=== PATIENT | male | born 1975 | race Hispanic/Latino ===

== ENCOUNTER 2024-09-03 13:18 | Inpatient (IN) | payer SELFPAY ==
[2024-09-03] VITALS (24 sets, daily range): BP systolic 77–141; BP diastolic 49–91; PULSE 81–102; RESP 12–20; TEMP 96–98.6; O2SAT 100
[~2024-09-03] VITALS: Ht 162.6 cm; Wt 44.5 kg
[2024-09-03 13:48] LABS: BASOPHILS # (AUTO) 0.05 K/uL (0.00-0.20); BASOPHILS % (AUTO) 0.4 % (0.0-5.0); EOSINOPHILS # (AUTO) 0.03 K/uL (0.00-0.70); EOSINOPHILS % (AUTO) 0.3 % (0.0-8.0); HEMATOCRIT 44.8 % (42-54); IMMATURE GRANULOCYTE ABSOLUTE 0.17 K/uL (0-1); LYMPHOCYTES # (AUTO) 1.2 K/uL (1.0-4.8); LYMPHOCYTES % (AUTO) 9.7 % (21.0-51.0); MEAN CORPUSCULAR HGB CONC 31.3 g/dL (32.0-36.0); MEAN CORPUSCULAR VOLUME 99.3 fL (79-99); MONOCYTES # (AUTO) 0.6 K/uL (0.1-1.0); MONOCYTES % (AUTO) 5.2 % (3.0-13.0); NEUTROPHILS # (AUTO) 9.9 K/uL (1.8-7.7); PLATELET COUNT (AUTO) 246 K/uL (130-400); RED BLOOD CELL COUNT(AUTO) 4.51 MIL/uL (4.50-6.20); RED CELL DISTRIBUTION WIDTH 13.6 % (11.0-15.5); WHITE BLOOD COUNT (AUTO) 11.9 K/uL (4.8-10.8)
[2024-09-03 13:49] LABS: ABG BASE EXCESS -27.8 mmol/L (-2.0-3.0); ABG HCO3 2.1 mmol/L (21.0-28.0); ABG OXYGEN SATURATION 98.1 % (94.0-98.0); ABG PCO2 < 15 mmHg (35-48); ABG PH 6.971 (7.350-7.450); CARBON MONOXIDE 0.3 % (0.5-1.5); HHb 1.9; PO2, ARTERIAL BG 149.9 mmHg (83.0-108.0); VENT MODE, BG RA (ROOM AIR)
[2024-09-03] MEDS: 0.9%NACL 1000ML 1,000 ML IV ONE (14:04)
[2024-09-03 14:07] LABS: CREATININE 1.6 mg/dL (0.5-1.3); POTASSIUM 4.7 mmol/L (3.5-5.1)
[2024-09-03] MEDS: ondanSETRON 4MG INJ IVP ONE (14:08)
[2024-09-03] MEDS: SODIUM BICARB 50MEQ 50ML VIAL IV ONE ×2 (14:08→22:19)
[2024-09-03] MEDS: INSULIN humuLIN R 100 UNIT/ML 3ML IV ONE (14:09)
[2024-09-03 14:16] LABS: APPEARANCE,URINE CLOUDY (CLEAR); BILIRUBIN,URINE NEGATIVE (NEGATIVE); COLOR,URINE LIGHT-YELLOW (YELLOW); GLUCOSE, URINE (UA) >=1000 mg/dL (NEGATIVE); KETONES,URINE 150 mg/dL (NEGATIVE); LEUKOCYTE ESTERASE ,URINE NEGATIVE Leu/uL (NEGATIVE); NITRATE,URINE NEGATIVE (NEGATIVE); OCCULT BLOOD,URINE SMALL (NEGATIVE); PH,URINE 5.5 (5.0-8.0); PROTEIN,URINE 70 mg/dL (NEGATIVE); UROBILINOGEN,URINE 0.2 mg/dL (0.2-1.0)
[2024-09-03 14:17] LABS: ADD UA MICROSCOPIC YES
[2024-09-03] MEDS ORDERED: PoTASSium chloRIDE 20MEQ/10ML 20 MEQ in 0.9%NACL 1000ML 1,000 ML IV SCH (14:30)
[2024-09-03] MEDS ORDERED: MAGNESIUM 2GM PREMIX 50ML 50 ML IV SCH (14:30)
[2024-09-03] MEDS ORDERED: DEXTROSE 5 %-0.45 % NACL 1,000 ML IV SCH (14:30)
--- NOTE | 2024-09-03 14:35 | ERN ---
General Chief Complaint: Abdominal Pain Stated Complaint: ABDOMINAL PAIN AND VOMITING Time Seen by MD: 13:19 Source: patient History of Present Illness Initial Comments IS A 49-YEAR-OLD MALE COMING IN TO BE EVALUATED FOR NAUSEOUSNESS VOMITING YOUR. PATIENT IS DIABETIC HAS BEEN TAKING MEDICATION FOR SOME TIME. Allergies: Coded Allergies: No Known Allergies (Unverified Allergy, Unknown, 09/03/24) Past Medical History Past Medical History: Diabetes-Type II Past Surgical History: Other ROS Dictation CONSTITUTIONAL: NO CHILLS, NO FEVER, NO WEAKNESS, NO DIAPHORESIS, NO MALAISE. HEAD/FACE: NO SIGNS OF TRAUMA. EENT: NO EYE PAIN, NO BLURRED VISION, NO TEARING, NO DOUBLE VISION, NO EAR PAIN, NO EAR DISCHARGE, NO NOSE PAIN, NO NASAL CONGESTION, NO THROAT PAIN, NO THROAT SWELLING, NO MOUTH PAIN. RESPIRATORY: NO COUGH, NO ORTHOPNEA, NO SOB, NO STRIDOR, NO WHEEZING. CARDIOVASCULAR: NO CHEST PAIN, NO EDEMA, NO PALPITATIONS, NO SYNCOPE. GASTROINTESTINAL/ABDOMINAL: NO ABDOMINAL PAIN, NO CONSTIPATION, NO DIARRHEA, NO NAUSEA, NO VOMITING. GENITOURINARY: NO ABNORMAL DISCHARGE, NO DYSURIA, NO FREQUENT URINATION, NO HEMATURIA. NO COMPLAINTS OF PAIN IN THE GENITALS. MUSCULOSKELETAL: NO BACK PAIN, NO GOUT, NO JOINT PAIN, NO JOINT SWELLING, NO MUSCLE PAIN, NO MUSCLE STIFFNESS, NO NECK PAIN. INTEGUMENTARY: NO CHANGE IN COLOR, NO CHANGE IN HAIR/NAILS, NO DRYNESS, NO LESION, NO LUMPS, NO RASH. NEUROLOGICAL/PSYCH: NO ANXIETY, NOT DEPRESSED, NO EMOTIONAL PROBLEM, NO HEADACHE, NO NUMBNESS, NO PRE-EXISTING DEFICIT, NO HISTORY OF SEIZURES, NO TREMORS, NO WEAKNESS. HEMATOLOGIC/LYMPHATIC: NOT ANEMIC, NO HISTORY OF BLOOD CLOTS, NO APPARENT BLEEDING, NO BRUISING, GLANDS NOT SWOLLEN. ALL SYSTEMS NEGATIVE, EXCEPT NOTED. Physical Exam Physical Exam Dictation VITAL SIGNS: REVIEWED. GENERAL APPEARANCE: ALERT, ORIENTED X3, ACUTE DISTRESS, . HEAD AND FACE: NON-TRAUMATIC. EYES: PERRL, PINK CONJUNCTIVAS, EYELID NO TRAUMA, ANTERIOR CHAMBER CLEAR. EARS: PINNAS INTACT AND NO SIGNS OF TRAUMA OR ERYTHEMA. EAR CANALS CLEAR AND NO DISCHARGE. TMS NO ERYTHEMA. NOSE: NO DISCHARGE, NO BLEEDING. OROPHARYNX: MOUTH NORMAL, TEETH NO CARIES, TONGUE PINK. PHARYNX CLEAR, NO ERYTHEMA. TONSILS NO EXUDATES, NO ABSCESSES NOTED. MUCOUS MEMBRANE MOIST. NECK: SUPPLE, NON-TENDER, NO THYROMEGALY, NO MASSES, NO JVD, NO BRUITS. BREAST: DEFERRED. CHEST: NO TENDERNESS, NO CREPITUS, NO PARADOXICAL MOVEMENT, NO RETRACTIONS. LUNGS: CLEAR, WELL-VENTILATED, SYMMETRIC, NO RALES, NO WHEEZING, NO RHONCHI, NO STRIDOR, GOOD BREATH SOUNDS BILATERALLY. HEART: REGULAR RATE, REGULAR RHYTHM, NO MURMUR, NO GALLOPS. VASCULAR: NO PERIPHERAL EDEMA. ABDOMEN: SOFT, POSITIVE BOWEL SOUNDS, NONDISTENDED, NO GUARDING, NONTENDER, NO REBOUND, NO MASSES NO HEPATOMEGALY, NO SPLENOMEGALY, NO ROJO'S SIGN, NO HERNIAS. RECTAL: DEFERRED. GENITAL: DEFERRED. NEUROLOGICAL: NORMAL SPEECH, GROSS MOTOR FUNCTION INTACT, GROSS SENSORY F UNCTION INTACT. MUSCULOSKELETAL: NECK NONTENDER, FULL RANGE OF MOTION, BACK NONTENDER, FULL RANGE OF MOTION. EXTREMITIES: NONTENDER, FULL RANGE OF MOTION. SKIN: COLOR PINK, DRY, NO TURGOR, NO RASH, NO LACERATIONS, NO ABRASIONS, NO CONTUSIONS. LYMPHATICS: DEFERRED. Results Laboratory and Microbiology Lab and Micro Result Laboratory Tests Test 09/03/24 13:20 09/03/24 13:36 09/03/24 13:48 09/03/24 14:00 Sodium Level 131 mmol/L (136-145) L Potassium Level 4.7 mmol/L (3.5-5.1) Chloride Level 96 mmol/L (101-111) L Carbon Dioxide Level 7 mmol/L (21-32) *L Blood Urea Nitrogen 27 mg/dL (7-18) H Creatinine 1.6 mg/dL (0.5-1.3) H Glomerular Filtration Rate Calc 52 mL/min (>90) Random Glucose 538 mg/dL (70-105) *H Whole Blood Ketones Quantitative 7.5 mmol/L (0.0-0.6) H Lactic Acid Level 5.7 mmol/L (0.8-2.5) H Total Calcium 7.9 mg/dL (8.5-10.1) L Total Creatine Kinase 88 U/L (21-232) White Blood Count 11.9 K/uL (4.8-10.8) H Red Blood Count 4.51 MIL/uL (4.50-6.20) Hemoglobin 14.0 g/dL (14.0-18.0) Hematocrit 44.8 % (42-54) Mean Corpuscular Volume 99.3 fL (79-99) H Mean Corpuscular Hemoglobin 31.0 pg (27.0-33.0) Mean Corpuscular Hemoglobin Concent 31.3 g/dL (32.0-36.0) L Red Cell Distribution Width 13.6 % (11.0-15.5) Platelet Count 246 K/uL (130-400) Mean Platelet Volume 11.1 fL (7.5-10.5) H Immature Granulocyte % (Auto) 1.4 % (0-1) H Neutrophils (%) (Auto) 83.0 % (40.0-77.0) H Lymphocytes (%) (Auto) 9.7 % (21.0-51.0) L Monocytes (%) (Auto) 5.2 % (3.0-13.0) Eosinophils (%) (Auto) 0.3 % (0.0-8.0) Basophils (%) (Auto) 0.4 % (0.0-5.0) Neutrophils # (Auto) 9.9 K/uL (1.8-7.7) H Lymphocytes # (Auto) 1.2 K/uL (1.0-4.8) Monocytes # (Auto) 0.6 K/uL (0.1-1.0) Eosinophils # (Auto) 0.03 K/uL (0.00-0.70) Basophils # (Auto) 0.05 K/uL (0.00-0.20) Absolute Immature Granulocyte (auto 0.17 K/uL (0-1) Nucleated Red Blood Cells 0.0 % (0.0-0.19) Troponin I High Sensitivity < 4 ng/L (4-75) L Blood Gas Specimen Type Arterial Arterial Blood pH 6.971 (7.350-7.450) Arterial Blood Partial Pressure CO2 < 15 mmHg (35-48) *L Arterial Blood Partial Pressure O2 149.9 mmHg (83.0-108.0) H Arterial Blood HCO3 2.1 mmol/L (21.0-28.0) L Arterial Blood Oxygen Saturation 98.1 % (94.0-98.0) H Arterial Blood Base Excess -27.8 mmol/L (-2.0-3.0) L Hemoglobin (Blood Gas) 13.6 g/dL (13.5-17.5) Sodium (Blood Gas) 133 MMOL/L (136-145) L Bedside Potassium (Blood Gas) 3.9 MMOL/L (3.4-4.5) Bedside Chloride (Blood Gas) 105 MMOL/L (98-107) Bedside Glucose (Blood Gas) 491 MG/DL (65-95) *H Bedside Ionized Calcium (Blood Gas) 1.23 MMOL/L (1.15-1.33) Bedside Lactic Acid (Blood Gas) 2.48 MMOL/L (0.36-0.75) H Blood Gas Temperature 37.0 CELSIUS (35.5-37.0) Blood Gas Vent Mode RA (ROOM AIR) FiO2 21.0 % Blood Gas Specimen Comment RRSTACY Urine Color LIGHT-YELLOW (YELLOW) Urine Appearance CLOUDY (CLEAR) H Urine pH 5.5 (5.0-8.0) Urine Specific [place] 1.021 (1.001-1.031) Urine Protein 70 mg/dL (NEGATIVE) H Urine Glucose (UA) >=1000 mg/dL (NEGATIVE) H Urine Ketones 150 mg/dL (NEGATIVE) H Urine Occult Blood SMALL (NEGATIVE) H Urine Nitrate NEGATIVE (NEGATIVE) Urine Bilirubin NEGATIVE mg/dL (NEGATIVE) Urine Urobilinogen 0.2 mg/dL (0.2-1.0) Urine Leukocyte Esterase NEGATIVE Hortencia/uL Labs Reviewed?: Yes EKG/XRAY/US/CT/MRI EKG Comment 09/03/2024 TIME 1:38 P.M. VENTRICULAR RATE 111 SIN[address] TACHYCARDIA [place] [address] WAVE ELEVATION OR DEPRESSION MDM MDM: DIFFERENTIAL DIAGNOSIS: DKA, ELEVATED GLUCOSE, DEHYDRATION, RATIONALE: TESTS CONSIDERED AND ORDERED SECONDARY TO SHARED DECISION MAKING INCLUDE: LABS, ECG AND RADIOLOGY PREVIOUS OUTSIDE RECORDS REVIEWED: OLD ER VISITS. RISK OF COMPLICATION AND/OR MORBIDITY OR MORTALITY OF PATIENT MANAGEMENT: NONE MEDICATIONS-PER MEDICATION RECONCILIATION NEED FOR HOSPITALIZATION: PATIENT DOES MEET CRITERIA FOR HOSPITALIZATION. NEED FOR EMERGENCY MAJOR/MINOR SURGERY: NO THERE ARE NO SOCIAL CONCERNS WITH THIS PATIENT. PRESCRIPTION DRUG MANAGEMENT PRESCRIPTIONS WILL INCLUDE SYMPTOMATIC CARE PATIENT'S PRIOR EXTERNAL MEDICAL RECORDS FROM OTHER ER VISITS WERE REVIEWED BY ME INDICATED. PRIOR TESTING AND RESULTS FROM PREVIOUS VISITS WERE REVIEWED. PRIOR TESTS WERE TAKEN INTO ACCOUNT WITH MEDICAL DECISION MAKING AND RESOURCE UTILIZATION, INDEPENDENT HISTORIAN/HISTORIANS WERE USED TO OBTAIN COMPLETE MEDICAL HISTORY. I INDEPENDENTLY INTERPRETED THE TEST THAT WERE PERFORMED, RESULTS WERE REVIEWED BY ME AND CONSIDERED FINDINGS ON RADIOLOGY IF ORDERED. MEDICAL MANAGEMENT AND EXAMINATION INTERPRETATION DISCUSSIONS WERE HAD BY ME WITH OTHER QUALIFIED HEALTHCARE PROFESSIONALS INDICATED FOR THE PATIENT'S CARE. PATIENT IS A 49-YEAR-OLD IN TO BE EVALUATED FOR NEAR SYNCOPAL EPISODE. PATIENT DOES HAS A HISTORY OF DIABETES AND HAS NOT BEEN TAKING HIS MEDICATION PRESCRIBED. PATIENT WILL BE ADMITTED UNDER THE CARE OF HOSPITALIST GROUP FOR ONGOING MANAGEMENT OF DKA. ED Course Orders Procedure Category Date Status Time Cbc With Differential LAB 09/03/24 In Process 13:20 Blood Cult THOM 09/03/24 In Process 13:20 Urinalysis Profile LAB 09/03/24 In Process 13:20 Culture Urine THOM 09/03/24 In Process 13:20 Creatine Kinase, Total LAB 09/03/24 Complete 13:20 Troponin I High LAB 09/03/24 Complete Sensitivity 13:20 Lactic Acid LAB 09/03/24 Complete 13:20 Basic Metabolic Panel LAB 09/03/24 Complete 13:20 Ketone Blood LAB 09/03/24 Complete Quantitative 13:20 Arterial Blood Gas + RT 09/03/24 Transmitted 13:20 0.9%Nacl 1000ml (Ns PHA 09/03/24 Complete 1000ml) 13:30 12 Lead Ekg Tracing- EKG 09/03/24 Logged Technical 13:20 Arterial Blood Gas LAB 09/03/24 Complete Arterial + 13:48 Ondansetron 4mg Inj PHA 09/03/24 Complete (Zofran 4mg Inj) 14:00 Sodium Bicarb 50meq PHA 09/03/24 Complete 50ml Vial (Sodium Bi 14:00 Insulin Regular, PHA 09/03/24 Complete Human 3ml (Humulin R 14:00 Dka Prtcl:Restrict To CPOE 09/03/24 Transmitted Icu/Ccu 14:26 Dka Protcl:Dc All CPOE 09/03/24 Transmitted Meds/Feeding 14:26 Dka Protocol: Bmp Q4h CPOE 09/03/24 Transmitted Until 14:26 Basic Metabolic Panel LAB 09/03/24 Logged 18:00 Basic Metabolic Panel LAB 09/03/24 Logged 22:00 Basic Metabolic Panel LAB 09/04/24 Verified 02:00 Basic Metabolic Panel LAB 09/04/24 Verified 06:00 Basic Metabolic Panel LAB 09/04/24 Verified 10:00 Basic Metabolic Panel LAB 09/04/24 Verified 14:00 Basic Metabolic Panel LAB 09/04/24 Verified 18:00 Basic Metabolic Panel LAB 09/04/24 Verified 22:00 0.9%Nacl 1000ml (Ns PHA 09/03/24 In Process 1000ml) 14:30 D5w-1/2 Ns/20meq Kcl PHA 09/03/24 In Process (D5w-1/2 Ns/20meq K 14:30 Potassium Chloride PHA 09/03/24 In Process 20meq/10ml (Kcl 20meq 14:30 Magnesium 2gm Premix PHA 09/03/24 In Process 50ml (Magnesium 2gm 14:30 Insulin Regular, PHA 09/03/24 In Process Human 3ml (Humulin R 14:30 Dka Protocol: Bs, Vs, CPOE 09/03/24 Transmitted Neuro 14:26 Dextrose 5 %-0.45 % PHA 09/03/24 In Process Nacl (D5 1/2ns) 14:30 0.9%Nacl 1000ml (Ns PHA 09/03/24 Complete 1000ml) 14:31 Current Medications Medications (Trade) Dose Ordered Sig/Moris Route PRN Reason Start Time Stop Time Status Last Admin Dose Admin Dextrose/Sodium Chloride 1,000 ml @ 0 mls/hr AD IV 09/03/24 14:30 10/03/24 14:29 Insulin Human Regular (humuLIN R 100 UNIT/ML 3ML) 5 unit ONCE ONCE IV 09/03/24 14:00 09/03/24 14:02 DC 09/03/24 14:09 Insulin Human Regular 100 unit/ Sodium Chloride 101 ml @ 0 mls/hr PROTOCOL IV 09/03/24 14:30 10/03/24 14:29 Magnesium Sulfate 50 ml @ 0 mls/hr PROTOCOL IV 09/03/24 14:30 10/03/24 14:29 Ondansetron HCl (zoFRAN 4MG INJ) 4 mg ONCE ONCE IVP 09/03/24 14:00 09/03/24 14:02 DC 09/03/24 14:08 Potassium Chloride 20 meq/ Sodium Chloride 1,010 ml @ 0 mls/hr PROTOCOL IV 09/03/24 14:30 10/03/24 14:29 Potassium Chloride/Dextrose/ Sod Cl 1,000 ml @ 0 mls/hr AD IV 09/03/24 14:30 10/03/24 14:29 Sodium Bicarbonate (Sodium Bicarb 50meq 50ml Vial) 50 meq ONCE ONCE IV 09/03/24 14:00 09/03/24 14:02 DC 09/03/24 14:08 Sodium Chloride 1,000 ml @ 0 mls/hr ONCE ONCE IV 09/03/24 13:30 09/03/24 13:52 DC 09/03/24 14:04 Sodium Chloride 1,000 ml @ 0 mls/hr Q0M STAT IV 09/03/24 14:31 09/03/24 14:38 DC 09/03/24 14:41 Sodium Chloride 1,000 ml @ 200 mls/hr PROTOCOL IV 09/03/24 14:30 10/03/24 14:29 Vital Signs Date Time Temp Pulse Resp B/P (MAP) Pulse Ox O2 Delivery O2 Flow Rate FiO2 09/03/24 14:18 98.1 104 27 141/94 99 Room Air* 0 21 09/03/24 13:42 109 29 155/87 100 Room Air* 0 21 09/03/24 13:19 98.1 110 30 153/96 99 Critical Care Note Comments CRITICAL CARE PROCEDURE NOTE AUTHORIZED AND PERFORMED BY: TOTAL CRITICAL CARE TIME: APPROXIMATELY 36 MINUTES DUE TO A HIGH PROBABILITY OF CLINICALLY SIGNIFICANT, LIFE THREATENING DETERIORATION, THE PATIENT REQUIRED MY HIGHEST LEVEL OF PREPAREDNESS TO INTERVENE EMERGENTLY AND I PERSONALLY SPENT THIS CRITICAL CARE TIME DIRECTLY AND PERSONALLY MANAGING THE PATIENT. THIS CRITICAL CARE TIME INCLUDED OBTAINING A H ISTORY; EXAMINING THE PATIENT; PULSE OXIMETRY; ORDERING AND REVIEW OF STUDIES; ARRANGING URGENT TREATMENT WITH DEVELOPMENT OF A MANAGEMENT PLAN; EVALUATION OF PATIENT'S RESPONSE TO TREATMENT; FREQUENT REASSESSMENT; AND, DISCUSSIONS WITH OTHER PROVIDERS. THIS CRITICAL CARE TIME WAS PERFORMED TO ASSESS AND MANAGE THE HIGH PROBABILITY OF IMMINENT, LIFE-THREATENING DETERIORATION THAT COULD RESULT IN MULTI-ORGAN FAILURE. IT WAS EXCLUSIVE OF SEPARATELY BILLABLE PROCEDURES AND TREATING OTHER PATIENTS AND TEACHING TIME. PLEASE SEE MDM SECTION AND THE REST OF THE NOTE FOR FURTHER INFORMATION ON PATIENT ASSESSMENT AND TREATMENT. DX & DISP Disposition: Inpatient Decision to Admit Time: 14:45 Departure Impression: Primary Impression: DKA (diabetic ketoacidosis) Additional Impression: RACHEL (acute kidney injury) Condition: Stable Referrals: SELF,REFERRAL (PCP) GWEN HUDSON MD September 03, 2024 14:35
[2024-09-03] MEDS: 0.9%NACL 1000ML 1,000 ML IV STA (14:41)
[2024-09-03 14:51] LABS: BACTERIA,URINE RARE /HPF (None Seen); MUCUS,URINE RARE LPF (None Seen); RBC,URINE 0-1 /HPF (0-1); SQUAMOUS EPITHELIAL CELL,UR RARE /HPF (0-2)
[2024-09-03] MEDS: 0.9%NACL 1000ML 1,000 ML IV SCH (15:05)
[2024-09-03] MEDS: INSULIN REGULAR, HUMAN 3ML 100 UNIT in 0.9%NACL 100ML 100 ML IV SCH (15:11)
--- NOTE | 2024-09-03 16:20 | NUR ---
PT DOES NOT HAVE HOME MEDS WITH HIM. PT DOES NOT RECALL CONCENTRATION OF HOME MEDS. PT DOES RECALL THAT HE TAKES METFORMIN. UNABLE TO RECALL FREQUENCY AT THIS TIME
[2024-09-03] MEDS ORDERED: ondanSETRON 4MG INJ IV PRN (16:30)
[2024-09-03] MEDS ORDERED: guaiFENesin-DM 200/20MG 10ML PO PRN (16:30)
[2024-09-03] MEDS ORDERED: GLUCAGON 1MG KIT 1 MG ML IM PRN (16:30)
[2024-09-03] MEDS ORDERED: ZOLPidem TARTrate 5 MG TAB PO PRN (16:30)
[2024-09-03] MEDS ORDERED: ketOROlac 15MG/ML VIAL (15MG/ML) IV PRN (16:30)
[2024-09-03] MEDS ORDERED: 0.9%NACL 1000ML 1,000 ML IV SCH (16:30)
[2024-09-03] MEDS ORDERED: LACTULOSE 20 GM/30 ML UDCUP PO PRN (16:30)
[2024-09-03] MEDS ORDERED: MAG/ALUM/SIMETH 30 ML UDCUP PO PRN (16:30)
[2024-09-03] MEDS ORDERED: acetaMINOPHEN 325 MG TAB PO PRN ×3 (16:30)
[2024-09-03] MEDS ORDERED: morPHINE 2 MG SYG IVP PRN (16:30)
[2024-09-03] MEDS: INSULIN humuLIN R 100 UNIT/ML 3ML SQ SCH (16:30)
[2024-09-03] MEDS ORDERED: NITROGLYCERIN 0.4 MG SL TAB SL PRN (16:30)
[2024-09-03] MEDS ORDERED: oxyCODONE/aceTAMIN 5/325MG TAB PO PRN (16:30)
[2024-09-03] MEDS ORDERED: DiphenhydrAMINE HCL 50 MG/ML VIAL IV PRN (16:30)
[2024-09-03] MEDS ORDERED: hydrALAZine 20MG/ML VIAL IV PRN (16:30)
[2024-09-03] MEDS ORDERED: FAMOTIDINE 20MG VIAL IV PRN (16:30)
[2024-09-03] MEDS ORDERED: DEXTROSE 50%-WATER 50 ML DISP.SYRIN IV PRN (16:30)
--- NOTE | 2024-09-03 16:32 | HMCIMG ---
Exam Type: CHEST 1VW Clinical Information: congestion Comparison: None Findings: The lungs are clear of infiltrates. The heart is normal in size. The bony and soft tissue structures of the chest are unremarkable. Impression: Clear lungs.
--- NOTE | 2024-09-03 16:43 | HP ---
[facility]ORY [facility] PHYS[facility] Date of Service: September 03, 2024 Time of Service: 16:33 PCP:none Admitting: Dr Mast, Allergies: No Allergy Information Available, No Known Drug Allergies HISTORY OF PRESENT ILLNESS: [Patient is 49 years old male with a past medical history of diabetes, noncompliance, who came to emergency department with a complaint of nausea, vomiting and abdominal pain. Patient stated that he has been having abdominal pain for the past few days. Nausea and vomiting started a day after abdominal pain. Today patient decided to come to ER due to severe abdominal pain, that no pain medications were able to release the pain. Most recent vital signs temperature 97.9� pulse 110 respiration 26 blood pressure 126/78. Patient is on room air satting 99%. WBC 11.9 hemoglobin 14 hematocrit 44.8 platelets 246. UA negative for leukocytosis or nitrates. Sodium 131 potassium 4.7 CO2 seven BUN 27 creatinine 1.6 GFR 52 blood glucose 466. Random glucose 538 lactic acid 5.7 WBC ketones 7.5 total calcium 7.9 troponin negative x1 CK 88. Patient will be admitted under hospitalist care and we will send patient to ICU for DKA. Patient was started on insulin drip in the meantime. Chest x-ray and CT abdomen/pelvis is pending at this moment. We will consult meeting planner for re-evaluation of diabetes. Patient agrees with the further stated plan.] REVIEW OF SYSTEMS CONSTITUTIONAL: Denies fevers, chills, or night sweats. No unintentional weight loss reported. NEUROLOGICAL: Denies headache, amaurosis fugax, motor weakness, sensory deficit, vertigo/spinning sensation, gait abnormalities, or tremors. ENT: No hearing loss, otalgia, otorrhea, rhinitis, rhinorrhea, hoarseness, or sore throat. CARDIOVASCULAR: Denies any exertional angina, dyspnea on exertion, orthopnea, paroxysmal nocturnal dyspnea, palpitations, life-threatening arrhythmias, claudication. PULMONARY: Denies any shortness of breath, cough, phlegm/sputum, hemoptysis, pleuritic chest pain. SLEEP: Denies morning headaches, daytime somnolence or napping. Denies difficulty falling asleep, staying asleep, waking from sleep. Denies knowledge of snoring. GASTROINTESTINAL: Denies any type of dysphagia to either liquids or solids. De nies pyrosis, early satiety, diarrhea, constipation, or changes in stool consistency or caliber. Denies coffee-ground emesis, hematemesis, hematochezia, or melanotic stools. Abdominal pain, nausea, vomiting GENITOURINARY: Denies frequency, urgency, nocturia, hematuria or incontinence (Storage/Irritative symptoms.) Low urinary stream, straining to void, urinary intermittency or hesitancy, splitting of the voiding stream, terminal dribbling. ENDOCRINOLOGIC: Denies polyuria, polydipsia, polyphagia or heat/cold intolerances. HEMATOLOGIC: Denies thrombophilia/previous clots, or coagulopathy/bleeding disorders. ONCOLOGIC: Denies personal history of malignancy. DERMATOLOGIC: Denies rashes or pruritus. PSYCHIATRIC: Denies any suicidal or homicidal ideation. Denies hallucinations. PAST MEDICAL HISTORY: [ Diabetes] PAST SURGICAL HISTORY: [ Denies any] PAST SOCIAL HISTORY: [ Patient denies smoking. Patient stated he drinks occasionally. Patient denies any drug illicit ] FAMILY HISTORY: [ Patient lives at home with the family. Patient independent. ] Coded Allergies: No Known Allergies (Unverified Allergy, Unknown, 09/03/24) PHYSICAL EXAM GENERAL APPEARANCE: The patient is awake, alert, and oriented, in no acute cardiopulmonary distress. NEUROLOGICAL: Cranial nerves II-XII grossly intact. Motor is 5/5 in bilateral upper and lower extremities proximal to distal. No sensory deficits. HEENT: Face is symmetric. Pupils are equal and reactive. Extraocular movements are intact. NECK: Supple. No JVD. No thyromegaly. No submental, submandibular, pre- /postauricular, occipital or supraclavicular lymphadenopathy. CHEST: Normal chest expansion. No Telemetry. LUNGS: Absence of any rales, rhonchi or any wheezing. CARDIOVASCULAR: Regular. S1 and S2 normal. No appreciable rubs, murmurs or gallops. ABDOMEN: Soft, and nondistended. There is no rebound, voluntary guarding, or rigidity. Tender to touch : Deferred. No Boswell. EXTREMITIES: Non-edematous and not cyanotic. No clubbing. Good capillary refill. SKIN: No skin breakdown. Vital Sign (Last 24 Hours) 09/03/24 16:07 Temp 97.9 Pulse 110 Resp 26 B/P (MAP) 126/78 Pulse Ox 99 O2 Delivery Room Air* O2 Flow Rate 0 FiO2 21 LABS: Laboratory: Test 09/03/24 16:05 09/03/24 14:55 09/03/24 14:00 09/03/24 13:48 Range/Units Whole Blood Glucose 422 *H 70-110 MG/DL Bedside Glucose Comment Protocol Initiated Urine Color LIGHT-YELLOW YELLOW Urine Appearance CLOUDY H CLEAR Urine pH 5.5 5.0-8.0 Urine Specific [place] 1.021 1.001-1.031 Urine Protein 70 H NEGATIVE mg/dL Urine Glucose (UA) >=1000 H NEGATIVE mg/dL Urine Ketones 150 H NEGATIVE mg/dL Urine Occult Blood SMALL H NEGATIVE Urine Nitrate NEGATIVE NEGATIVE Urine Bilirubin NEGATIVE NEGATIVE mg/dL Urine Urobilinogen 0.2 0.2-1.0 mg/dL Urine Leukocyte Esterase NEGATIVE NEGATIVE [place]/uL Urine RBC 0-1 0-1 /HPF Urine WBC 2-5 H 0-1 /HPF Urine Squamous Epithelial Cells RARE 0-2 /HPF Urine Bacteria RARE None Seen /HPF Blood Gas Specimen Type Arterial Arterial Blood pH 6.971 *L 7.350-7.450 Arterial Blood Partial Pressure CO2 < 15 *L 35-48 mmHg Arterial Blood Partial Pressure O2 149.9 H 83.0-108.0 mmHg Arterial Blood HCO3 2.1 L 21.0-28.0 mmol/L Arterial Blood Oxygen Saturation 98.1 H 94.0-98.0 % Arterial Blood Base Excess -27.8 L -2.0-3.0 mmol/L Hemoglobin (Blood Gas) 13.6 13.5-17.5 g/dL Sodium (Blood Gas) 133 L 136-145 MMOL/L Bedside Potassium (Blood Gas) 3.9 3.4-4.5 MMOL/L Bedside Chloride (Blood Gas) 105 98-107 MMOL/L Bedside Glucose (Blood Gas) 491 *H 65-95 MG/DL Bedside Ionized Calcium (Blood Gas) 1.23 1.15-1.33 MMOL/L Bedside Lactic Acid (Blood Gas) 2.48 H 0.36-0.75 MMOL/L Blood Gas Temperature 37.0 35.5-37.0 CELSIUS Blood Gas Vent Mode RA ROOM AIR FiO2 21.0 % Blood Gas Specimen Comment RRSTACY Test 09/03/24 13:36 09/03/24 13:20 Range/Units White Blood Count 11.9 H 4.8-10.8 K/uL Red Blood Count 4.51 4.50-6.20 MIL/uL Hemoglobin 14.0 14.0-18.0 g/dL Hematocrit 44.8 42-54 % Mean Corpuscular Volume 99.3 H 79-99 fL Mean Corpuscular Hemoglobin 31.0 27.0-33.0 pg Mean Corpuscular Hemoglobin Concent 31.3 L 32.0-36.0 g/dL Red Cell Distribution Width 13.6 11.0-15.5 % Platelet Count 246 130-400 K/uL Mean Platelet Volume 11.1 H 7.5-10.5 fL Immature Granulocyte % (Auto) 1.4 H 0-1 % Neutrophils (%) (Auto) 83.0 H 40.0-77.0 % Lymphocytes (%) (Auto) 9.7 L 21.0-51.0 % Monocytes (%) (Auto) 5.2 3.0-13.0 % Eosinophils (%) (Auto) 0.3 0.0-8.0 % Basophils (%) (Auto) 0.4 0.0-5.0 % Neutrophils # (Auto) 9.9 H 1.8-7.7 K/uL Lymphocytes # (Auto) 1.2 1.0-4.8 K/uL Monocytes # (Auto) 0.6 0.1-1.0 K/uL Eosinophils # (Auto) 0.03 0.00-0.70 K/uL Basophils # (Auto) 0.05 0.00-0.20 K/uL Absolute Immature Granulocyte (auto 0.17 0-1 K/uL Nucleated Red Blood Cells 0.0 0.0-0.19 % White Cell Morphology Comment See comments Troponin I High Sensitivity < 4 L 4-75 ng/L Sodium Level 131 L 136-145 mmol/L Potassium Level 4.7 3.5-5.1 mmol/L Chloride Level 96 L 101-111 mmol/L Carbon Dioxide Level 7 *L 21-32 mmol/L Blood Urea Nitrogen 27 H 7-18 mg/dL Creatinine 1.6 H 0.5-1.3 mg/dL Glomerular Filtration Rate Calc 52 >90 mL/min Random Glucose 538 *H 70-105 mg/dL Whole Blood Ketones Quantitative 7.5 H 0.0-0.6 mmol/L Lactic Acid Level 5.7 H 0.8-2.5 mmol/L Total Calcium 7.9 L 8.5-10.1 mg/dL Total Creatine Kinase 88 21-232 U/L Current Medications Medications (Trade) Dose Ordered Sig/Moris Route PRN Reason Start Time Stop Time Status Last Admin Dose Admin Acetaminophen (TYLenol 325MG TAB) 650 mg Q4H PRN PO MILD PAIN (1-3) 09/03/24 16:30 10/03/24 16:29 Acetaminophen (TYLenol 325MG TAB) 650 mg Q6H PRN PO MILD PAIN (1-3) 09/03/24 16:30 09/03/24 16:15 DC Acetaminophen (TYLenol 325MG TAB) 650 mg Q6H PRN PO TEMPERATURE GREATER THAN 101.5 09/03/24 16:30 10/03/24 16:29 Al Hydroxide/Mg Hydroxide (MAALox PLUS 30ML) 30 ml Q6H PRN PO INDIGESTION 09/03/24 16:30 10/03/24 16:29 Dextrose (D50w) 50 ml AD PRN IV HYPOGLYCEMIA PROTOCOL 09/03/24 16:30 10/03/24 16:29 Dextrose/Sodium Chloride 1,000 ml @ 0 mls/hr AD IV 09/03/24 14:30 10/03/24 14:29 Diphenhydramine HCl (BENAdryl INJ) 25 mg Q6H PRN IV SEVERE ITCHING/RASH 09/03/24 16:30 10/03/24 16:29 Famotidine (Pepcid 20mg Vial) 20 mg BID PRN IV NAUSEA/VOMITING 09/03/24 16:30 09/03/24 16:15 DC Famotidine (Pepcid 20mg Vial) 20 mg DAILY IV 09/04/24 09:00 10/04/24 08:59 Glucagon (Glucagon 1mg Kit) 1 mg AD PRN IM HYPOGLYCEMIA PROTOCOL 09/03/24 16:30 10/03/24 16:29 Guaifenesin/ Dextromethorphan (RobiTUSSin DM 200/20MG 10ML) 10 ml Q4H PRN PO COUGH 09/03/24 16:30 10/03/24 16:29 Heparin Sodium (Porcine) (HEParin 5,000 UNIT VIAL) 5,000 unit BID SQ 09/03/24 21:00 10/03/24 20:59 Hydralazine HCl (APRESOLine 20MG INJ) 10 mg Q6H PRN IV For:SBP above 160;DBP above 90 09/03/24 16:30 10/03/24 16:29 Insulin Human Regular (humuLIN R 100 UNIT/ML 3ML) INSULIN SLIDING SCAL... ACHS SQ 09/03/24 16:30 10/03/24 16:29 Insulin Human Regular 100 unit/ Sodium Chloride 101 ml @ 0 mls/hr PROTOCOL IV 09/03/24 14:30 10/03/24 14:29 09/03/24 15:11 5.4 MLS/HR Ketorolac Tromethamine (toRADol) 15 mg Q8H PRN IV MODERATE PAIN (4-6) 09/03/24 16:30 09/08/24 16:29 Lactulose (Constulose 20gm/ 30ml Udcup) 20 gm BID PRN PO CONSTIPATION 09/03/24 16:30 10/03/24 16:29 Magnesium Sulfate 50 ml @ 0 mls/hr PROTOCOL IV 09/03/24 14:30 10/03/24 14:29 Morphine Sulfate (morPHINE 2MG SYG) 1 mg Q4H PRN IVP SEVERE PAIN (7-10) 09/03/24 16:30 09/10/24 16:29 Nitroglycerin (Nitrostat) 0.4 mg PROTOCOL PRN SL CHEST PAIN 09/03/24 16:30 10/03/24 16:29 Ondansetron HCl (zoFRAN 4MG INJ) 4 mg Q6H PRN IV NAUSEA/VOMITING 09/03/24 16:30 10/03/24 16:29 Oxycodone/ Acetaminophen (perCOCET) 1 tab Q6H PRN PO SEVERE PAIN (7-10) 09/03/24 16:30 09/10/24 16:29 Piperacillin Sod/ Tazobactam Sod 50 ml @ 12.5 mls/hr Q8H IV 09/03/24 21:00 09/13/24 20:59 Potassium Chloride 20 meq/ Sodium Chloride 1,010 ml @ 0 mls/hr PROTOCOL IV 09/03/24 14:30 10/03/24 14:29 Potassium Chloride/Dextrose/ Sod Cl 1,000 ml @ 0 mls/hr AD IV 09/03/24 14:30 10/03/24 14:29 Sodium Chloride 1,000 ml @ 0 mls/hr Q0M STAT IV 09/03/24 14:31 09/03/24 14:38 DC 09/03/24 14:41 1,000 MLS/HR Sodium Chloride 1,000 ml @ 100 mls/hr Q10H IV 09/03/24 16:30 10/03/24 16:29 Sodium Chloride 1,000 ml @ 200 mls/hr PROTOCOL IV 09/03/24 14:30 10/03/24 14:29 09/03/24 15:05 200 MLS/HR Zolpidem Tartrate (AmbIEN) 5 mg HS PRN PO INSOMNIA 09/03/24 16:30 10/03/24 16:29 DIAGNOSTICS / RADIOLOGY: [ ] ASSESSMENT: [ Acute DKA POA Acute hypercapnic respiratory failure POA Acute tachycardia due to above POA Acute dehydration POA Acute kidney injury due to above POA Intractable nausea and vomiting POA Severe abdominal pain POA Medical noncompliance POA Leukocytosis WBC 11.9 POA Uncontrolled diabetes mellitus type 2 with hypoglycemia POA Uncontrolled hypertension POA Lactic acidosis 5.7 Electrolyte imbalance hyponatremia 131 ] PLAN: [ Admit to: ICU Consults: ICU, meeting planner Antibiotics: Zosyn Tests: CT abdomen/pelvis, chest x-ray NEURO: Minimize central acting medications as possible. Fall Precautions. Well lighted room through the day and minimize interruptions through the night to prevent acute delirium. PULMONARY: Chest x-ray pending Supplemental 02 as needed BiPAP as necessary, for respiratory distress Titrate Fio2 to keep Spo2 > or = 90% DuoNeb�s and CPT as needed IS hourly while awake for pulmonary hygiene Out of bed to chair as tolerated VAP Bundle Maintain aspiration precautions at all times CARDIOVASCULAR: Follow hemodynamics. Vital signs per facility protocol GI & NUTRITION: CT abdomen/pelvis Continue nutritional support Aspirations precautions Prokinetic agents and laxatives as needed KIDNEYS & ELECTROLYTES: Strict monitoring of intake and output Daily weights Avoid nephrotoxic agents Monitor electrolytes and replace as needed Goal urine output of 30mL/hr or 0.5mL/kg/hr Medications to be dosed according to renal function. Avoid contrast if possible ENDOCRINE: Insulin drip Maintain blood glucose between 100-180 at all times. Insulin sliding scale for blood glucose management Hypoglycemia and hyperglycemia protocol in place INFECTIOUS DISEASE: Trend temperature, WBC and procalcitonin level Follow cultures, deescalate antibiotics as soon as possible. Panculture if new onset fever HEMATOLOGY & COAGULATION: Monitor H&H. Keep Hgb > 7 Transfuse 1 unit of PRBC for Hgb < 7 Transfuse 1 pack of platelets of platelets < 20, 000 Watch for any signs and symptoms of bleeding SKIN: Pressure ulcer prevention per facility protocol Specialty mattress as needed Treatment plan discussed with patient and family at the bedside Medications to be reconciled once obtained by patient and/or family and available to be reconciled in computer p.r.n. medication for pain nausea and vomiting Questions were answered We will continue to monitor the patient closely Bait Man for disposition Rehab: PT/OT GI: PPI DVT: SCD's Code Status: Full Resuscitation Disposition: TBD Prognosis: Guarded ] ADVANCED CARE PLANNING 1. Which of the following were discussed? Hospice Care - Yes / No Therapeutic options - Yes / No Advance Directives - Yes / No Other discussions - 2. Discussed with who? Patient 3. Voluntary nature of this service was explained to the patient? Yes / No 4. Amount of time spent - __ more than 35 minutes 5. Reviewed by Physician? (if this service was performed by NPP) Yes / No ATTESTATION BY PHYSICIAN I have seen and examined the patient. I reviewed the documentation, medical decision making, and treatment plan as noted by the mid-level provider above. I agree with the findings and plan of care. WADE MAST MD, KATARZYNA B [employer]AL[employer] ASSURANCE AUDITOR September 03, 2024 16:43
--- NOTE | 2024-09-03 16:52 | HMCIMG ---
Exam Type: CT ABDOMEN/PELVIS W/O CONTRAST Clinical Information: abd pain Comparison: None CT Dose Index (CTDI): 10.20 mGy Dose Length Product (DLP): 530.00 total mGy-cm PROTOCOL: Routine noncontrast helical scanning of the abdomen and pelvis was performed at 5mm collimation. Findings: No evidence of nephro or ureterolithiasis is found. No hydronephrosis or ureteral dilatation is seen. Ill-defined focus of airspace disease of the left lower lobe posterior segment is seen consistent with a focus of pneumonia. Follow-up to complete radiographic resolution is recommended to rule out underlying persistent lesions which could indicate neoplastic disease. The stomach is unremarkable. It shows no wall thickening. No gross ulceration is seen. It is not overly distended. There are no surrounding inflammatory changes. No wall lesions are identified to suggest cancer. The spleen is unremarkable. It is not enlarged. The pancreas shows normal anatomy. It is not fatty replaced. It shows no lesions. The pancreatic duct is not dilated. The gallbladder is unremarkable. It shows no cholelithiasis. The gallbladder wall is normal in thickness. There is no pericholecystic fluid. The is no acute or chronic inflammation noted. The adrenal glands are unremarkable. There is no enlargement. No lesions are noted. The liver is unremarkable. It shows no focal masses. The appendix is unremarkable. It shows no evidence of inflammation. No appendicolith is seen. The small bowel is unremarkable. There is no evidence of dilatation to suggest obstruction. No evidence of adynamic ileus is seen. There is no small bowel wall thickening to suggest enteritis. The colon is unremarkable. The urinary bladder is distended. The other pelvic structures are unremarkable. The bony and vascular structures are unremarkable for the patient's age. IMPRESSION: Developing left lower lobe pneumonia. Follow-up to complete radiographic resolution is recommended to rule out underlying persistent lesions which could indicate neoplastic disease. Distended urinary bladder. This study was performed using dose reduction techniques to include automated exposure control and/or adjustment of the mA and/or kV according to patient size.
--- NOTE | 2024-09-03 17:40 | NUR ---
PER ER NURSE CRITICAL CARE CONSULT HAS BEEN MADE AWARE OF NEW CONSULT.
--- NOTE | 2024-09-03 17:40 | NUR ---
PT ARRIVED ROM ER AT THIS TIME, PT AAOX3. VITALS CHARTED. PT RUNNING INSULIN AT 4U/HR. NS AT 500CC /HR. PT WITH TEMP OF 96.0 ORAL. BEARHUGGER APPLIED.
[2024-09-03] MEDS ORDERED: METF-444 PO (17:55)
[2024-09-03] MEDS: D5W-1/2 NS/20MEQ KCL 1,000 ML IV SCH (18:29)
[2024-09-03 18:34] LABS: CREATININE 1.1 mg/dL (0.5-1.3); POTASSIUM 3.8 mmol/L (3.5-5.1)
--- NOTE | 2024-09-03 18:55 | EKG ---
[facility] Test Date: 2024-09-03 Test Time: 13:38:12 Pat Name: MARIA DEL CARMEN MARAVILLA Department: [facility] Room: 219 1 Gender: M Service Aide: [id number] : 1975 Requested By: GWEN HUDSON Order Number: [id number] Reading MD: Gurmeet Good Measurements Intervals [place] Rate: 111 P: 77 [place]: 140 QRS: 61 QRSD: 94 T: 63 QT: 337 QTc: 457 Interpretive Statements Sinus tachycardia No previous ECG available for comparison Electronically Signed On 09-03-2024 21:36:54 CDT by Gurmeet Good Please click the below link to view image of tracing.
[2024-09-03] MEDS: HEParin 5,000 UNIT VIAL SQ SCH (20:13)
[2024-09-03] MEDS: ZOSYN 3.375GM+NS 50ML 50 ML IV SCH (20:14)
--- NOTE | 2024-09-03 20:17 | CONS ---
[facility] CONSULTATION NOTE Date Patient Seen: September 03, 2024 Time of Visit: 20:10 Supervising Physician: Dr. Andrea Rene Reason for Consultation: DKA Consulting Physician: Hospitalist Outpatient Specialists: [ ] Inpatient Consults: [ ] PROBLEM LIST: Diabetic ketoacidosis High anion gap metabolic acidosis DM type 2, with hyperglycemia, poorly controlled, POA Leukocytosis, POA Lactic acidosis, POA Intractable nausea and vomiting, POA Hypocalcemia, POA Electrolyte abnormality, POA PLAN: Continue ICU care NPO for now Continue DKA protocol Avoid nephrotoxic agents Renally dose all medications Strict I&O Zofran 4 mg IV q.6 as needed for nausea and vomiting Aspiration precautions Antibiotic management per primary Monitor temperature curve Treat fever aggressively Follow up culture results Trend lactic acid level Replete electrolyte accordingly Give LR 500 cc bolus x1 now Give another 100 cc of sodium bicarb push now HPI: 49-year-old male with past medical history of DM type 2 who presented to ED via private vehicle with complaint of nausea and vomiting and found to have high anion gap metabolic acidosis, lactic acidosis, DKA, and leukocytosis. Per report patient has been having issues with abdominal pain with associated is nausea and vomiting that has been ongoing for several days. According to the patient his condition worsened prompting ER visit today. In ED his initial CBC showed mildly elevated WBC, his chemistry is consistent with DKA with creatinine level of 1.6 and BUN of 27. UA also showed ketonuria. Patient was subsequently started on DKA protocol and consulted ICU for critical care evaluation and ma kirit. Patient was seen and examined in his room with no relatives present at bedside. Patient is Romanian-speaking only however bedside nurses able to translate during evaluation. At present patient is currently hemodynamically stable, on room air with appropriate oxygen saturation, currently receiving insulin drip and IV fluids. Patient denies any headache, chest pain, fever, diarrhea, but complains of episodic nausea and generalized body weakness. There is also noticeable ketone breaths. PAST MEDICAL HX: see above PAST SURGICAL HX: noncontributory SOCIAL HISTORY: No tobacco, ETOH, or illicit drug use Coded Allergies: No Known Allergies (Unverified Allergy, Unknown, 09/03/24) REVIEW OF SYSTEMS: 12 point ROS reviewed with patient. Pertinent positives mentioned above. Otherwise negative. PHYSICAL EXAM: GENERAL: alert, weak, awake oriented x 3 HEENT: EOMI, Sclera non icteric, moist mucosa NECK: Supple, no JVD, trachea midline LUNGS: Clear breath sounds bilaterally. No wheezes HEART: Regular rate and rhythm. Normal S1 and S2, without murmurs ABD: Abdomen soft, nontender. Bowel sounds present EXT: No clubbing cyanosis or edema NEURO: Alert and oriented to person, follows commands Vital Signs (last 8hr) Date Time Temp Pulse Resp B/P (MAP) Pulse Ox O2 Delivery O2 Flow Rate FiO2 09/03/24 18:54 85 15 116/77 100 Room Air 09/03/24 18:25 85 18 100 09/03/24 18:14 97.0 87 18 121/90 100 Room Air 09/03/24 18:10 83 18 100 09/03/24 17:59 89 20 141/91 100 Room Air 09/03/24 17:56 100 Room Air* 0 09/03/24 17:55 83 17 100 Room Air 09/03/24 17:40 96.1 87 20 134/84 100 Room Air 09/03/24 17:00 97.5 105 26 112/65 98 Room Air* 0 09/03/24 16:07 97.9 110 26 126/78 99 Room Air* 0 09/03/24 15:00 97.9 110 26 118/76 99 Room Air* 0 09/03/24 14:18 98.1 104 27 141/94 99 Room Air* 0 09/03/24 13:42 109 29 155/87 100 Room Air* 0 09/03/24 13:19 98.1 110 30 153/96 99 LABS: Hematology Labs: Test 09/03/24 13:36 Range/Units White Blood Count 11.9 H 4.8-10.8 K/uL Red Blood Count 4.51 4.50-6.20 MIL/uL Hemoglobin 14.0 14.0-18.0 g/dL Hematocrit 44.8 42-54 % Mean Corpuscular Volume 99.3 H 79-99 fL Mean Corpuscular Hemoglobin 31.0 27.0-33.0 pg Mean Corpuscular Hemoglobin Concent 31.3 L 32.0-36.0 g/dL Red Cell Distribution Width 13.6 11.0-15.5 % Platelet Count 246 130-400 K/uL Mean Platelet Volume 11.1 H 7.5-10.5 fL Immature Granulocyte % (Auto) 1.4 H 0-1 % Neutrophils (%) (Auto) 83.0 H 40.0-77.0 % Lymphocytes (%) (Auto) 9.7 L 21.0-51.0 % Monocytes (%) (Auto) 5.2 3.0-13.0 % Eosinophils (%) (Auto) 0.3 0.0-8.0 % Basophils (%) (Auto) 0.4 0.0-5.0 % Neutrophils # (Auto) 9.9 H 1.8-7.7 K/uL Lymphocytes # (Auto) 1.2 1.0-4.8 K/uL Monocytes # (Auto) 0.6 0.1-1.0 K/uL Eosinophils # (Auto) 0.03 0.00-0.70 K/uL Basophils # (Auto) 0.05 0.00-0.20 K/uL Absolute Immature Granulocyte (auto 0.17 0-1 K/uL Nucleated Red Blood Cells 0.0 0.0-0.19 % White Cell Morphology Comment See comments Chemistry Labs: Test 09/03/24 19:07 09/03/24 18:15 09/03/24 17:07 09/03/24 14:55 Range/Units Whole Blood Glucose 244 H 70-110 MG/DL Sodium Level 138 136-145 mmol/L Potassium Level 3.8 3.5-5.1 mmol/L Chloride Level 106 101-111 mmol/L Carbon Dioxide Level 8 *L 21-32 mmol/L Blood Urea Nitrogen 23 H 7-18 mg/dL Creatinine 1.1 0.5-1.3 mg/dL Glomerular Filtration Rate Calc 81 >90 mL/min Random Glucose 308 H 70-105 mg/dL Total Calcium 6.8 L 8.5-10.1 mg/dL Lactic Acid Level 5.4 H 0.8-2.5 mmol/L Bedside Glucose Comment Protocol Initiated Test 09/03/24 13:36 09/03/24 13:20 Range/Units Troponin I High Sensitivity < 4 L 4-75 ng/L Whole Blood Ketones Quantitative 7.5 H 0.0-0.6 mmol/L Total Creatine Kinase 88 21-232 U/L DIAGNOSTICS / RADIOLOGY RESULTS: Exam Type: CT ABDOMEN/PELVIS W/O CONTRAST Clinical Information: abd pain Comparison: None CT Dose Index (CTDI): 10.20 mGy Dose Length Product (DLP): 530.00 total mGy-cm PROTOCOL: Routine noncontrast helical scanning of the abdomen and pelvis was performed at 5mm collimation. Findings: No evidence of nephro or ureterolithiasis is found. No hydronephrosis or ureteral dilatation is seen. Ill-defined focus of airspace disease of the left lower lobe posterior segment is seen consistent with a focus of pneumonia. Follow-up to complete radiographic resolution is recommended to rule out underlying persistent lesions which could indicate neoplastic disease. The stomach is unremarkable. It shows no wall thickening. No gross ulceration is seen. It is not overly distended. There are no surrounding inflammatory changes. No wall lesions are identified to suggest cancer. The spleen is unremarkable. It is not enlarged. The pancreas shows normal anatomy. It is not fatty replaced. It shows no lesions. The pancreatic duct is not dilated. The gallbladder is unremarkable. It shows no cholelithiasis. The gallbladder wall is normal in thickness. There is no pericholecystic fluid. The is no acute or chronic inflammation noted. The adrenal glands are unremarkable. There is no enlargement. No lesions are noted. The liver is unremarkable. It shows no focal masses. The appendix is unremarkable. It shows no evidence of inflammation. No appendicolith is seen. The small bowel is unremarkable. There is no evidence of dilatation to suggest obstruction. No evidence of adynamic ileus is seen. There is no small bowel wall thickening to suggest enteritis. The colon is unremarkable. The urinary bladder is distended. The other pelvic structures are unremarkable. The bony and vascular structures are unremarkable for the patient's age. IMPRESSION: Developing left lower lobe pneumonia. Follow-up to complete radiographic resolution is recommended to rule out underlying persistent lesions which could indicate neoplastic disease. Distended urinary bladder. This study was performed using dose reduction techniques to include automated exposure control and/or adjustment of the mA and/or kV according to patient size. PLAN NEURO: Minimize central acting medications as possible. Fall Precautions. Well lighted room through the day and minimize interruptions through the night to prevent acute delirium. PULMONARY: Supplemental 02 as needed Titrate Fio2 to keep Spo2 > or = 90% DuoNeb�s and CPT as needed IS hourly while awake for pulmonary hygiene CARDIOVASCULAR: Follow hemodynamics. Titrate vasopressor to keep MAP >65 or systolic blood pressure >95mmHg DIPS: Insulin LINES: [ ] GI & NUTRITION: NPO Continue nutritional support Aspirations precautions Prokinetic agents and laxatives as needed KIDNEYS & ELECTROLYTES: Strict monitoring of intake and output Daily weights Avoid nephrotoxic agents Monitor electrolytes and replace as needed Goal urine output of 30mL/hr or 0.5mL/kg/hr ENDOCRINE: Maintain blood glucose between 100-180 at all times. Insulin sliding scale for blood glucose management INFECTIOUS DISEASE: Trend temperature. Head-culture if febrile. Micro: [ ] Antibiotics: Zosyn HEMATOLOGY & COAGULATION: Monitor H&H. Keep Hgb > 7 Transfuse 1 unit of PRBC for Hgb < 7 Transfuse 1 pack of platelets of platelets < 20, 000 Watch for any signs and symptoms of bleeding SKIN: Pressure ulcer prevention per facility protocol Rehab: PT/OT Prophylaxis: GI: Pepcid DVT: Heparin subQ Code Status: Full Resuscitation Disposition: ICU Other: Total patient care time exceeds 35 minutes excluding all procedures. Supervising physician: CA Donato [employer] September 03, 2024 20:17
[2024-09-03] MEDS ORDERED: LACTATED RINGERS 1000ML IV SCH (21:00)
[2024-09-03 23:27] LABS: CREATININE 0.7 mg/dL (0.5-1.3); POTASSIUM 3.1 mmol/L (3.5-5.1)
[2024-09-04] VITALS (101 sets, daily range): BP systolic 78–133; BP diastolic 33–78; PULSE 61–85; RESP 11–23; O2SAT 99–100
[2024-09-04 04:54] LABS: BASOPHILS # (AUTO) 0.02 K/uL (0.00-0.20); BASOPHILS % (AUTO) 0.3 % (0.0-5.0); EOSINOPHILS # (AUTO) 0.05 K/uL (0.00-0.70); EOSINOPHILS % (AUTO) 0.7 % (0.0-8.0); HEMATOCRIT 31.8 % (42-54); IMMATURE GRANULOCYTE ABSOLUTE 0.02 K/uL (0-1); LYMPHOCYTES % (AUTO) 13.3 % (21.0-51.0); MEAN CORPUSCULAR HEMOGLOBIN 31.2 pg (27.0-33.0); MEAN CORPUSCULAR HGB CONC 35.5 g/dL (32.0-36.0); MEAN CORPUSCULAR VOLUME 87.8 fL (79-99); MONOCYTES # (AUTO) 0.9 K/uL (0.1-1.0); MONOCYTES % (AUTO) 12.5 % (3.0-13.0); NEUTROPHILS # (AUTO) 5.3 K/uL (1.8-7.7); NEUTROPHILS % (AUTO) 72.9 % (40.0-77.0); PLATELET COUNT (AUTO) 169 K/uL (130-400); RED BLOOD CELL COUNT(AUTO) 3.62 MIL/uL (4.50-6.20); RED CELL DISTRIBUTION WIDTH 12.8 % (11.0-15.5); WHITE BLOOD COUNT (AUTO) 7.3 K/uL (4.8-10.8)
[2024-09-04 05:29] LABS: ALBUMIN 2.4 g/dL (3.5-5.0); BILIRUBIN,DIRECT 0.1 mg/dL (0.0-0.3); BILIRUBIN,TOTAL 0.2 mg/dL (0.2-1.0); CREATININE 0.7 mg/dL (0.5-1.3); MAGNESIUM 1.8 mg/dL (1.80-2.40); TOTAL PROTEIN, SERUM 4.9 g/dL (6.0-8.3)
[2024-09-04 05:39] LABS: POTASSIUM 2.8 mmol/L (3.5-5.1)
[2024-09-04] MEDS ORDERED: PoTASSium chl 10% ELIXIR 20MEQ 20 MEQ/15 ML UDCUP PO PRN ×2 (06:30→11:30)
[2024-09-04] MEDS ORDERED: PoTASSium chloRIDE 20MEQ/100ML 100 ML IV PRN (06:30)
[2024-09-04] MEDS: PoTASSium chloRIDE 20MEQ ER 20 MEQ ERTAB PO PRN (06:40)
--- NOTE | 2024-09-04 09:32 | PN ---
[facility] PROGRESS NOTE Date Patient Seen: September 04, 2024 Time of Visit: 10:22 Supervising Physician: [Dr. Hamilton] Consulting Physician: Hospitalist Outpatient Specialists: [ ] Inpatient Consults: [BIS] PROBLEM LIST: Diabetic ketoacidosis, resolved High anion gap metabolic acidosis, resolved DM type 2, with hyperglycemia, poorly controlled, POA Acute urinary retention Leukocytosis, POA Lactic acidosis, POA, resolved Constipation Intractable nausea and vomiting, POA, resolved Hypocalcemia, POA Electrolyte abnormality, POA PLAN: Start glargine 15 units BID, bolus of 5 TID Repeat BMP DC zosyn Start clears, advance as tolerated Bladder scan prior to diallo Diallo insertion Start flomax daily Start milk of magnesium daily Repeat labs in AM Downgrade to med/surg INTERVAL HISTORY: [Patient is evaluated at bedside. His anion gap is closed. DKA protocol is completed. He is feeling much improved, without current nausea or vomiting. He has significant urinary bladder distention as noted per CT abdomen and is well correlated for physical exam. Also has some constipation. States he takes metformin at home for diabetes management, no insulin use. Lactic acid is resolved. Potassium is low, currently being replaced. He has possible lower lobe pneumonia per CT reading, no upper respiratory symptoms, patient is a non- smoker.] REVIEW OF SYSTEMS: 12 point ROS reviewed with patient. Pertinent positives mentioned above. Otherwise negative. PHYSICAL EXAM: GENERAL: alert, weak, awake oriented x 3 HEENT: EOMI, Sclera non icteric, moist mucosa NECK: Supple, no JVD, trachea midline LUNGS: Clear breath sounds bilaterally. No wheezes HEART: Regular rate and rhythm. Normal S1 and S2, without murmurs ABD: Abdomen soft, nontender. Bowel sounds present EXT: No clubbing cyanosis or edema NEURO: Alert and oriented to person, follows commands Vital Signs (last 8hr) Date Time Temp Pulse Resp B/P (MAP) Pulse Ox O2 Delivery O2 Flow Rate FiO2 09/04/24 07:15 66 16 99 Room Air 09/04/24 07:14 69 16 89/44 99 Room Air 09/04/24 07:00 67 16 100 Room Air 09/04/24 06:59 66 16 88/49 99 Room Air 09/04/24 06:45 72 13 100 Room Air 09/04/24 04:00 99 Room Air* 0 21 09/04/24 03:29 72 15 86/48 (61) 98 09/04/24 03:14 78 15 84/52 (63) 98 09/04/24 02:59 71 15 80/42 (55) 97 09/04/24 02:44 75 13 86/50 (62) 98 09/04/24 02:29 85 18 87/51 (63) 97 LABS: Hematology Labs: Test 09/04/24 04:42 09/03/24 13:36 Range/Units White Blood Count 7.3 # 4.8-10.8 K/uL Red Blood Count 3.62 L 4.50-6.20 MIL/uL Hemoglobin 11.3 L 14.0-18.0 g/dL Hematocrit 31.8 #L 42-54 % Mean Corpuscular Volume 87.8 79-99 fL Mean Corpuscular Hemoglobin 31.2 27.0-33.0 pg Mean Corpuscular Hemoglobin Concent 35.5 32.0-36.0 g/dL Red Cell Distribution Width 12.8 11.0-15.5 % Platelet Count 169 # 130-400 K/uL Mean Platelet Volume 10.2 7.5-10.5 fL Immature Granulocyte % (Auto) 0.3 0-1 % Neutrophils (%) (Auto) 72.9 40.0-77.0 % Lymphocytes (%) (Auto) 13.3 L 21.0-51.0 % Monocytes (%) (Auto) 12.5 3.0-13.0 % Eosinophils (%) (Auto) 0.7 0.0-8.0 % Basophils (%) (Auto) 0.3 0.0-5.0 % Neutrophils # (Auto) 5.3 1.8-7.7 K/uL Lymphocytes # (Auto) 1.0 1.0-4.8 K/uL Monocytes # (Auto) 0.9 0.1-1.0 K/uL Eosinophils # (Auto) 0.05 0.00-0.70 K/uL Basophils # (Auto) 0.02 0.00-0.20 K/uL Absolute Immature Granulocyte (auto 0.02 0-1 K/uL Nucleated Red Blood Cells 0.0 0.0-0.19 % White Cell Morphology Comment See comments Chemistry Labs: Test 09/04/24 06:48 09/04/24 04:42 09/03/24 14:55 09/03/24 13:36 Range/Units Whole Blood Glucose 138 H 70-110 MG/DL Sodium Level 142 136-145 mmol/L Potassium Level 2.8 *L 3.5-5.1 mmol/L Chloride Level 109 101-111 mmol/L Carbon Dioxide Level 21 21-32 mmol/L Blood Urea Nitrogen 16 7-18 mg/dL Creatinine 0.7 0.5-1.3 mg/dL Glomerular Filtration Rate Calc 112 >90 mL/min Random Glucose 156 H 70-105 mg/dL Lactic Acid Level 1.5 0.8-2.5 mmol/L Total Calcium 7.3 L 8.5-10.1 mg/dL Magnesium Level 1.80 1.80-2.40 mg/dL Total Bilirubin 0.2 0.2-1.0 mg/dL Direct Bilirubin 0.1 0.0-0.3 mg/dL Aspartate Amino Transf (AST/SGOT) 23 10-37 U/L Alanine Aminotransferase (ALT/SGPT) 21 12-78 U/L Alkaline Phosphatase 76 50-136 U/L Total Creatine Kinase 74 21-232 U/L B-Type Natriuretic Peptide 75 0-100 pg/mL Total Protein 4.9 L 6.0-8.3 g/dL Albumin 2.4 L 3.5-5.0 g/dL Procalcitonin 2.31 H 0.05-0.5 ng/mL Bedside Glucose Comment Protocol Initiated Troponin I High Sensitivity < 4 L 4-75 ng/L Test 09/03/24 13:20 Range/Units Whole Blood Ketones Quantitative 7.5 H 0.0-0.6 mmol/L DIAGNOSTICS / RADIOLOGY RESULTS: [ ] PLAN NEURO: Minimize central acting medications as possible. Fall Precautions. Well lighted room through the day and minimize interruptions through the night to prevent acute delirium. PULMONARY: Supplemental 02 as needed Titrate Fio2 to keep Spo2 > or = 90% DuoNeb�s and CPT as needed IS hourly while awake for pulmonary hygiene CARDIOVASCULAR: Follow hemodynamics. Titrate vasopressor to keep MAP >65 or systolic blood pressure >95mmHg DIPS: Insulin LINES: [ ] GI & NUTRITION: Clears, advance as tolerated Continue nutritional support Aspirations precautions Prokinetic agents and laxatives as needed KIDNEYS & ELECTROLYTES: Strict monitoring of intake and output Daily weights Avoid nephrotoxic agents Monitor electrolytes and replace as needed Goal urine output of 30mL/hr or 0.5mL/kg/hr ENDOCRINE: Maintain blood glucose between 100-180 at all times. Insulin sliding scale for blood glucose management INFECTIOUS DISEASE: Trend temperature. Head-culture if febrile. Micro: [ ] Antibiotics: Zosyn, DC HEMATOLOGY & COAGULATION: Monitor H&H. Keep Hgb > 7 Transfuse 1 unit of PRBC for Hgb < 7 Transfuse 1 pack of platelets of platelets < 20, 000 Watch for any signs and symptoms of bleeding SKIN: Pressure ulcer prevention per facility protocol Rehab: PT/OT Prophylaxis: GI: Pepcid DVT: Heparin subQ Code Status: Full Resuscitation Disposition: downgrade to med/surg Other: Total patient care time exceeds 35 minutes excluding all procedures. MARBELLA RICHMOND September 04, 2024 09:32
[2024-09-04] MEDS: PoTASSium chloRIDE 20MEQ ER 20 MEQ ERTAB PO ONE ×2 (10:08→20:20)
[2024-09-04] MEDS: FAMOTIDINE 20MG VIAL IV SCH (10:08)
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
[2024-09-04 10:51] LABS: CREATININE 0.7 mg/dL (0.5-1.3); POTASSIUM 3.2 mmol/L (3.5-5.1)
--- NOTE | 2024-09-04 11:00 | NUR ---
bladder scan performed as ordered, residual of greater than 1000ml. Patient reported that he felt the urge to void and voided 950ml.
--- NOTE | 2024-09-04 11:16 | PN ---
[facility] PROGRESS NOTE Date of Service: September 04, 2024 Time of Service: 11:[address] Mast SUBJECTIVE: [ 09/03/24 Patient is 49 years old male with a past medical history of diabetes, noncompliance, who came to emergency department with a complaint of nausea, vomiting and abdominal pain. Patient stated that he has been having abdominal pain for the past few days. Nausea and vomiting started a day after abdominal pain. Today patient decided to come to ER due to severe abdominal pain, that no pain medications were able to release the pain. Most recent vital signs temperature 97.9� pulse 110 respiration 26 blood pressure 126/78. Patient is on room air satting 99%. WBC 11.9 hemoglobin 14 hematocrit 44.8 platelets 246. UA negative for leukocytosis or nitrates. Sodium 131 potassium 4.7 CO2 seven BUN 27 creatinine 1.6 GFR 52 blood glucose 466. Random glucose 538 lactic acid 5.7 WBC ketones 7.5 total calcium 7.9 troponin negative x1 CK 88. Patient will be admitted under hospitalist care and we will send patient to ICU for DKA. Patient was started on insulin drip in the meantime. Chest x-ray and CT abdomen/pelvis is pending at this moment. We will consult health nurse for re-evaluation of diabetes. 09/04/24 patient was seen by nurse practitioner and physician during roundings in room 219. Anion gap has closed patient is off the insulin drip. We are pending final urine culture at this moment. CT abdomen/pelvis showed left lower lobe pneumonia, neoplastic disease and distended urinary bladder. Chest x-ray was negative. We will order CT chest to evaluate the neoplastic disease that showed on CT abdomen/pelvis. Patient's potassium today is 2.8. Patient already received 40 mEq of potassium and patient will also get two additional doses of 40 mEq of potassium as well. Most recent blood sugar is 138. Patient continues to be on Zosyn at this moment. WBC 7.3. We will continue to monitor patient in the meantime. A.m. labs.] REVIEW OF SYSTEMS CONSTITUTIONAL: Denies fevers, chills, or night sweats. No unintentional weight loss reported. NEUROLOGICAL: Denies headache, amaurosis fugax, motor weakness, sensory deficit, vertigo/spinning sensation, gait abnormalities, or tremors. ENT: No hearing loss, otalgia, otorrhea, rhinitis, rhinorrhea, hoarseness, or sore throat. CARDIOVASCULAR: Denies any exertional angina, dyspnea on exertion, orthopnea, paroxysmal nocturnal dyspnea, palpitations, life-threatening arrhythmias, claudication. PULMONARY: Denies any shortness of breath, cough, phlegm/sputum, hemoptysis, pleuritic chest pain. SLEEP: Denies morning headaches, daytime somnolence or napping. Denies difficulty falling asleep, staying asleep, waking from sleep. Denies knowledge of snoring. GASTROINTESTINAL: Denies any type of dysphagia to either liquids or solids. Denies pyrosis, early satiety, diarrhea, constipation, or changes in stool consistency or caliber. Denies coffee-ground emesis, hematemesis, hematochezia, or melanotic stools. Complains of Abdominal pain, denies any nausea, vomiting GENITOURINARY: Denies frequency, urgency, nocturia, hematuria or incontinence (Storage/Irritative symptoms.) Low urinary stream, straining to void, urinary intermittency or hesitancy, splitting of the voiding stream, terminal dribbling. ENDOCRINOLOGIC: Denies polyuria, polydipsia, polyphagia or heat/cold intolerances. HEMATOLOGIC: Denies thrombophilia/previous clots, or coagulopathy/bleeding disorders. ONCOLOGIC: Denies personal history of malignancy. DERMATOLOGIC: Denies rashes or pruritus. PSYCHIATRIC: Denies any suicidal or homicidal ideation. Denies hallucinations. PHYSICAL EXAM GENERAL APPEARANCE: The patient is awake, alert, and oriented, in no acute cardiopulmonary distress. NEUROLOGICAL: Cranial nerves II-XII grossly intact. Motor is 5/5 in bilateral upper and lower extremities proximal to distal. No sensory deficits. HEENT: Face is symmetric. Pupils are equal and reactive. Extraocular movements are intact. NECK: Supple. No JVD. No thyromegaly. No submental, submandibular, pre- /postauricular, occipital or supraclavicular lymphadenopathy. CHEST: Normal chest expansion. No Telemetry. LUNGS: Absence of any rales, rhonchi or any wheezing. CARDIOVASCULAR: Regular. S1 and S2 normal. No appreciable rubs, murmurs or gallops. ABDOMEN: Soft, and nondistended. There is no rebound, voluntary guarding, or rigidity. Tender to touch : Deferred. No Boswell. EXTREMITIES: Non-edematous and not cyanotic. No clubbing. Good capillary refill. SKIN: No skin breakdown. Vital Signs (last 8hr) Date Time Temp Pulse Resp B/P (MAP) Pulse Ox O2 Delivery O2 Flow Rate FiO2 09/04/24 07:15 66 16 99 Room Air 09/04/24 07:14 69 16 89/44 99 Room Air 09/04/24 07:00 67 16 100 Room Air 09/04/24 06:59 66 16 88/49 99 Room Air 09/04/24 06:45 72 13 100 Room Air 09/04/24 04:00 99 Room Air* 0 21 09/04/24 03:29 72 15 86/48 (61) 98 09/04/24 03:14 78 15 84/52 (63) 98 LABS: Laboratory: Test 09/04/24 10:05 09/04/24 06:48 09/04/24 04:42 09/03/24 16:15 Range/Units Sodium Level 140 136-145 mmol/L Potassium Level 3.2 L 3.5-5.1 mmol/L Chloride Level 110 101-111 mmol/L Carbon Dioxide Level 19 L 21-32 mmol/L Blood Urea Nitrogen 16 7-18 mg/dL Creatinine 0.7 0.5-1.3 mg/dL Glomerular Filtration Rate Calc 112 >90 mL/min Random Glucose 213 H 70-105 mg/dL Total Calcium 7.3 L 8.5-10.1 mg/dL Whole Blood Glucose 138 H 70-110 MG/DL White Blood Count 7.3 # 4.8-10.8 K/uL Red Blood Count 3.62 L 4.50-6.20 MIL/uL Hemoglobin 11.3 L 14.0-18.0 g/dL Hematocrit 31.8 #L 42-54 % Mean Corpuscular Volume 87.8 79-99 fL Mean Corpuscular Hemoglobin 31.2 27.0-33.0 pg Mean Corpuscular Hemoglobin Concent 35.5 32.0-36.0 g/dL Red Cell Distribution Width 12.8 11.0-15.5 % Platelet Count 169 # 130-400 K/uL Mean Platelet Volume 10.2 7.5-10.5 fL Immature Granulocyte % (Auto) 0.3 0-1 % Neutrophils (%) (Auto) 72.9 40.0-77.0 % Lymphocytes (%) (Auto) 13.3 L 21.0-51.0 % Monocytes (%) (Auto) 12.5 3.0-13.0 % Eosinophils (%) (Auto) 0.7 0.0-8.0 % Basophils (%) (Auto) 0.3 0.0-5.0 % Neutrophils # (Auto) 5.3 1.8-7.7 K/uL Lymphocytes # (Auto) 1.0 1.0-4.8 K/uL Monocytes # (Auto) 0.9 0.1-1.0 K/uL Eosinophils # (Auto) 0.05 0.00-0.70 K/uL Basophils # (Auto) 0.02 0.00-0.20 K/uL Absolute Immature Granulocyte (auto 0.02 0-1 K/uL Nucleated Red Blood Cells 0.0 0.0-0.19 % Lactic Acid Level 1.5 0.8-2.5 mmol/L Magnesium Level 1.80 1.80-2.40 mg/dL Total Bilirubin 0.2 0.2-1.0 mg/dL Direct Bilirubin 0.1 0.0-0.3 mg/dL Aspartate Amino Transf (AST/SGOT) 23 10-37 U/L Alanine Aminotransferase (ALT/SGPT) 21 12-78 U/L Alkaline Phosphatase 76 50-136 U/L Total Creatine Kinase 74 21-232 U/L B-Type Natriuretic Peptide 75 0-100 pg/mL Total Protein 4.9 L 6.0-8.3 g/dL Albumin 2.4 L 3.5-5.0 g/dL Procalcitonin 2.31 H 0.05-0.5 ng/mL SARS-CoV-2 Antigen (Rapid) PRESUMPTIVE NEGATIVE NEGATIVE Test 09/03/24 14:55 09/03/24 14:00 09/03/24 13:48 09/03/24 13:36 Range/Units Bedside Glucose Comment Protocol Initiated Urine Color LIGHT-YELLOW YELLOW Urine Appearance CLOUDY H CLEAR Urine pH 5.5 5.0-8.0 Urine Specific Campbell 1.021 1.001-1.031 Urine Protein 70 H NEGATIVE mg/dL Urine Glucose (UA) >=1000 H NEGATIVE mg/dL Urine Ketones 150 H NEGATIVE mg/dL Urine Occult Blood SMALL H NEGATIVE Urine Nitrate NEGATIVE NEGATIVE Urine Bilirubin NEGATIVE NEGATIVE mg/dL Urine Urobilinogen 0.2 0.2-1.0 mg/dL Urine Leukocyte Esterase NEGATIVE NEGATIVE Hortencia/uL Urine RBC 0-1 0-1 /HPF Urine WBC 2-5 H 0-1 /HPF Urine Squamous Epithelial Cells RARE 0-2 /HPF Urine Bacteria RARE None Seen /HPF Blood Gas Specimen Type Arterial Arterial Blood pH 6.971 *L 7.350-7.450 Arterial Blood Partial Pressure CO2 < 15 *L 35-48 mmHg Arterial Blood Partial Pressure O2 149.9 H 83.0-108.0 mmHg Arterial Blood HCO3 2.1 L 21.0-28.0 mmol/L Arterial Blood Oxygen Saturation 98.1 H 94.0-98.0 % Arterial Blood Base Excess -27.8 L -2.0-3.0 mmol/L Hemoglobin (Blood Gas) 13.6 13.5-17.5 g/dL Sodium (Blood Gas) 133 L 136-145 MMOL/L Bedside Potassium (Blood Gas) 3.9 3.4-4.5 MMOL/L Bedside Chloride (Blood Gas) 105 98-107 MMOL/L Bedside Glucose (Blood Gas) 491 *H 65-95 MG/DL Bedside Ionized Calcium (Blood Gas) 1.23 1.15-1.33 MMOL/L Bedside Lactic Acid (Blood Gas) 2.48 H 0.36-0.75 MMOL/L Blood Gas Temperature 37.0 35.5-37.0 CELSIUS Blood Gas Vent Mode RA ROOM AIR FiO2 21.0 % Blood Gas Specimen Comment RRSTACY White Cell Morphology Comment See comments Troponin I High Sensitivity < 4 L 4-75 ng/L Test 09/03/24 13:20 Range/Units Whole Blood Ketones Quantitative 7.5 H 0.0-0.6 mmol/L Current Medications Medications (Trade) Dose Ordered Sig/Moris Route PRN Reason Start Time Stop Time Status Last Admin Dose Admin Acetaminophen (TYLenol 325MG TAB) 650 mg Q4H PRN PO MILD PAIN (1-3) 09/03/24 16:30 10/03/24 16:29 Acetaminophen (TYLenol 325MG TAB) 650 mg Q6H PRN PO MILD PAIN (1-3) 09/03/24 16:30 09/03/24 16:15 DC Acetaminophen (TYLenol 325MG TAB) 650 mg Q6H PRN PO TEMPERATURE GREATER THAN 101.5 5/7/25 16:30 10/03/24 16:29 Al Hydroxide/Mg Hydroxide (MAALox PLUS 30ML) 30 ml Q6H PRN PO INDIGESTION 09/03/24 16:30 10/03/24 16:29 Dextrose (D50w) 50 ml AD PRN IV HYPOGLYCEMIA PROTOCOL 09/03/24 16:30 10/03/24 16:29 Dextrose/Sodium Chloride 1,000 ml @ 0 mls/hr AD IV 09/03/24 14:30 10/03/24 14:29 Diphenhydramine HCl (BENAdryl INJ) 25 mg Q6H PRN IV SEVERE ITCHING/RASH 09/03/24 16:30 10/03/24 16:29 Famotidine (Pepcid 20mg Vial) 20 mg BID PRN IV NAUSEA/VOMITING 09/03/24 16:30 09/03/24 16:15 DC Famotidine (Pepcid 20mg Vial) 20 mg DAILY IV 09/04/24 09:00 10/04/24 08:59 09/04/24 10:08 20 MG Glucagon (Glucagon 1mg Kit) 1 mg AD PRN IM HYPOGLYCEMIA PROTOCOL 09/03/24 16:30 10/03/24 16:29 Guaifenesin/ Dextromethorphan (RobiTUSSin DM 200/20MG 10ML) 10 ml Q4H PRN PO COUGH 09/03/24 16:30 10/03/24 16:29 Heparin Sodium (Porcine) (HEParin 5,000 UNIT VIAL) 5,000 unit BID SQ 09/03/24 21:00 10/03/24 20:59 09/03/24 20:13 5,000 UNIT Hydralazine HCl (APRESOLine 20MG INJ) 10 mg Q6H PRN IV For:SBP above 160;DBP above 90 09/03/24 16:30 10/03/24 16:29 Insulin Human Regular (humuLIN R 100 UNIT/ML 3ML) INSULIN SLIDING SCAL... ACHS SQ 09/03/24 16:30 10/03/24 16:29 Insulin Human Regular 100 unit/ Sodium Chloride 101 ml @ 0 mls/hr PROTOCOL IV 09/03/24 14:30 09/04/24 08:25 DC 09/03/24 15:11 5.4 MLS/HR Ketorolac Tromethamine (toRADol) 15 mg Q8H PRN IV MODERATE PAIN (4-6) 09/03/24 16:30 09/08/24 16:29 Lactated Ringer's (Lactated Ringers 1000ml) 500 ml BOLUS IV 09/03/24 21:00 09/04/24 06:26 DC Lactulose (Constulose 20gm/ 30ml Udcup) 20 gm BID PRN PO CONSTIPATION 09/03/24 16:30 10/03/24 16:29 Magnesium Hydroxide (Milk Of Magnesium 30ml) 30 ml DAILY PO 09/04/24 09:30 10/04/24 09:29 Magnesium Sulfate 50 ml @ 0 mls/hr PROTOCOL IV 09/03/24 14:30 10/03/24 14:29 Morphine Sulfate (morPHINE 2MG SYG) 1 mg Q4H PRN IVP SEVERE PAIN (7-10) 09/03/24 16:30 09/10/24 16:29 Nitroglycerin (Nitrostat) 0.4 mg PROTOCOL PRN SL CHEST PAIN 09/03/24 16:30 10/03/24 16:29 Ondansetron HCl (zoFRAN 4MG INJ) 4 mg Q6H PRN IV NAUSEA/VOMITING 09/03/24 16:30 10/03/24 16:29 Oxycodone/ Acetaminophen (perCOCET) 1 tab Q6H PRN PO SEVERE PAIN (7-10) 09/03/24 16:30 09/04/24 06:26 DC Piperacillin Sod/ Tazobactam Sod 50 ml @ 12.5 mls/hr Q8H IV 09/03/24 21:00 09/04/24 09:29 DC 09/04/24 04:29 12.5 MLS/HR Potassium Chloride 20 meq/ Sodium Chloride 1,010 ml @ 0 mls/hr PROTOCOL IV 09/03/24 14:30 10/03/24 14:29 Potassium Chloride/Dextrose/ Sod Cl 1,000 ml @ 0 mls/hr AD IV 09/03/24 14:30 10/03/24 14:29 09/04/24 01:17 150 MLS/HR Potassium Chloride 100 ml @ 100 mls/hr AD PRN IV POTASSIUM PROTOCOL 09/04/24 06:30 10/04/24 06:29 Potassium Chloride (K-Dur/Klor-Con 20meq) 20 meq AD PRN PO POTASSIUM PROTOCOL 09/04/24 06:30 10/04/24 06:29 09/04/24 06:40 20 MEQ Potassium Chloride (KCl 10% Elixir 20meq/15ml) 20 meq AD PRN PO POTASSIUM PROTOCOL 09/04/24 06:30 10/04/24 06:29 Sodium Chloride 1,000 ml @ 0 mls/hr Q0M STAT IV 09/03/24 14:31 09/03/24 14:38 DC 09/03/24 14:41 1,000 MLS/HR Sodium Chloride 1,000 ml @ 100 mls/hr Q10H IV 09/03/24 16:30 09/03/24 16:41 DC Sodium Chloride 1,000 ml @ 200 mls/hr PROTOCOL IV 09/03/24 14:30 10/03/24 14:29 09/04/24 10:09 200 MLS/HR Tamsulosin HCl (FloMAX) 0.4 mg DAILY PO 09/04/24 09:30 10/04/24 09:29 Zolpidem Tartrate (AmbIEN) 5 mg HS PRN PO INSOMNIA 09/03/24 16:30 10/03/24 16:29 DIAGNOSTICS / RADIOLOGY: [ ] ASSESSMENT: [ Acute DKA POA Acute hypercapnic respiratory failure POA Acute tachycardia due to above POA Acute dehydration POA Acute kidney injury due to above POA Intractable nausea and vomiting POA Severe abdominal pain POA Electrolyte imbalance hypokalemia 2.8 POA Left lower lobe pneumonia per CT abdomen/pelvis Neoplastic disease per CT abdomen/pelvis POA Medical noncompliance POA Leukocytosis WBC 11.9 POA Uncontrolled diabetes mellitus type 2 with hypoglycemia POA Uncontrolled hypertension POA Lactic acidosis 5.7 Electrolyte imbalance hyponatremia 131 ] PLAN: [ Admit to: Continued ICU Consults: ICU, health nurse Antibiotics: Zosyn Tests: CT chest NEURO: Minimize central acting medications as possible. Fall Precautions. Well lighted room through the day and minimize interruptions through the night to prevent acute delirium. PULMONARY: Chest x-ray negative CT chest pending Supplemental 02 as needed BiPAP as necessary, for respiratory distress Titrate Fio2 to keep Spo2 > or = 90% DuoNeb�s and CPT as needed IS hourly while awake for pulmonary hygiene Out of bed to chair as tolerated VAP Bundle Maintain aspiration precautions at all times CARDIOVASCULAR: Follow hemodynamics. Vital signs per facility protocol GI & NUTRITION: CT abdomen/pelvis showed left lower lobe pneumonia, neoplastic disease, distended urinary bladder Continue nutritional support Aspirations precautions Prokinetic agents and laxatives as needed KIDNEYS & ELECTROLYTES: Patient will receive total of 120 mEq of potassium throughout the day Strict monitoring of intake and output Daily weights Avoid nephrotoxic agents Monitor electrolytes and replace as needed Goal urine output of 30mL/hr or 0.5mL/kg/hr Medications to be dosed according to renal function. Avoid contrast if possible ENDOCRINE: Insulin drip discontinued Maintain blood glucose between 100-180 at all times. Insulin sliding scale for blood glucose management Hypoglycemia and hyperglycemia protocol in place INFECTIOUS DISEASE: Trend temperature, WBC and procalcitonin level Follow cultures, deescalate antibiotics as soon as possible. Panculture if new onset fever HEMATOLOGY & COAGULATION: Monitor H&H. Keep Hgb > 7 Transfuse 1 unit of PRBC for Hgb < 7 Transfuse 1 pack of platelets of platelets < 20, 000 Watch for any signs and symptoms of bleeding SKIN: Pressure ulcer prevention per facility protocol Specialty mattress as needed Treatment plan discussed with patient and family at the bedside Medications to be reconciled once obtained by patient and/or family and av ailable to be reconciled in computer p.r.n. medication for pain nausea and vomiting Questions were answered We will continue to monitor the patient closely Animal Nutrition Consultant for disposition Rehab: PT/OT GI: PPI DVT: SCD's Code Status: Full Resuscitation Disposition: Home Prognosis: Guarded ] ATTESTATION BY PHYSICIAN I have seen and examined the patient. I reviewed the documentation, medical decision making, and treatment plan as noted by the mid-level provider above. I agree with the findings and plan of care. WADE MAST MD, [employer] September 04, 2024 11:16
[2024-09-04] MEDS: tamSULOsin HCL 0.4 MG CAP.ER.24H PO SCH (11:24)
[2024-09-04] MEDS: MAGNESIUM HYDROXIDE 30 ML/UDCUP PO SCH (11:24)
[2024-09-04] MEDS: INSULIN humuLIN R 100 UNIT/ML 3ML SQ SCH (11:30)
[2024-09-04] MEDS ORDERED: DEXTROSE 50%-WATER 50 ML DISP.SYRIN IV PRN (11:30)
[2024-09-04] MEDS ORDERED: MAGNESIUM 2GM PREMIX 50ML 50 ML IV PRN (11:30)
[2024-09-04] MEDS ORDERED: GLUCAGON 1MG KIT 1 MG ML IM PRN (11:30)
[2024-09-04] MEDS ORDERED: PoTASSium chloRIDE 10MEQ SR 10 MEQ/TAB TAB.SR.24H PO PRN (11:30)
[2024-09-04] MEDS ORDERED: PoTASSium chloRIDE 10MEQ/100ML 100 ML IV PRN (11:30)
[2024-09-04 15:25] LABS: CREATININE 0.7 mg/dL (0.5-1.3); POTASSIUM 3.4 mmol/L (3.5-5.1)
--- NOTE | 2024-09-04 16:57 | CONS ---
CONSULT NOTE: endocrinology consult Date of Service: September 04, 2024 chief complaint: reason for consult: nausea and vomiting reason for consult: DKA HISTORY OF PRESENT ILLNESS: [Patient is 49 years old male with a past medical history of diabetes, noncompliance, who came to emergency department with a complaint of nausea, vomiting and abdominal pain. Patient stated that he has been having abdominal pain for the past few days. Nausea and vomiting started a day after abdominal pain. Today patient decided to come to ER due to severe abdominal pain, that no pain medications were able to release the pain. vital signs temperature 97.9� pulse 110 respiration 26 blood pressure 126/78. Patient is on room air satting 99%. WBC 11.9 hemoglobin 14 hematocrit 44.8 platelets 246. UA negative for leukocytosis or nitrates. Sodium 131 potassium 4.7 CO2 seven BUN 27 creatinine 1.6 GFR 52 blood glucose 466. Random glucose 538 lactic acid 5.7 WBC ketones 7.5 total calcium 7.9 troponin negative x1 CK 88. Patient was diagnosed with DKA and treated with insulin drip. off insulin drip. he is non-compliant to insulin due to high cost and does not use any diabetic meds currently. glucose are still high, so insulin adjusted REVIEW OF SYSTEMS CONSTITUTIONAL: Denies fevers, chills, or night sweats. No unintentional weight loss reported. NEUROLOGICAL: Denies headache, amaurosis fugax, motor weakness, sensory deficit, vertigo/spinning sensation, gait abnormalities, or tremors. ENT: No hearing loss, otalgia, otorrhea, rhinitis, rhinorrhea, hoarseness, or sore throat. CARDIOVASCULAR: Denies any exertional angina, dyspnea on exertion, orthopnea, paroxysmal nocturnal dyspnea, palpitations, life-threatening arrhythmias, claudication. PULMONARY: Denies any shortness of breath, cough, phlegm/sputum, hemoptysis, pleuritic chest pain. SLEEP: Denies morning headaches, daytime somnolence or napping. Denies difficulty falling asleep, staying asleep, waking from sleep. Denies knowledge of snoring. GASTROINTESTINAL: Denies any type of dysphagia to either liquids or solids. Denies pyrosis, early satiety, diarrhea, constipation, or changes in stool consistency or caliber. Denies coffee-ground emesis, hematemesis, hematochezia, or melanotic stools. GENITOURINARY: Denies frequency, urgency, nocturia, hematuria or incontinence (Storage/Irritative symptoms.) Low urinary stream, straining to void, urinary intermittency or hesitancy, splitting of the voiding stream, terminal dribbling. ENDOCRINOLOGIC: Denies polyuria, polydipsia, polyphagia or heat/cold intoleranc es. HEMATOLOGIC: Denies thrombophilia/previous clots, or coagulopathy/bleeding disorders. ONCOLOGIC: Denies personal history of malignancy. DERMATOLOGIC: Denies rashes or pruritus. PSYCHIATRIC: Denies any suicidal or homicidal ideation. Denies hallucinations. PAST MEDICAL HISTORY: [ Diabetes] PAST SURGICAL HISTORY: [ Denies any] PAST SOCIAL HISTORY: [ Patient denies smoking. Patient stated he drinks occasionally. Patient denies any drug illicit ] FAMILY HISTORY: [ Patient lives at home with the family. Patient independent. ] Coded Allergies: No Known Allergies (Unverified Allergy, Unknown, 09/03/24) PHYSICAL EXAM GENERAL APPEARANCE: The patient is awake, alert, and oriented, in no acute cardiopulmonary distress. NEUROLOGICAL: Cranial nerves II-XII grossly intact. Motor is 5/5 in bilateral upper and lower extremities proximal to distal. No sensory deficits. HEENT: Face is symmetric. Pupils are equal and reactive. Extraocular movements are intact. NECK: Supple. No JVD. No thyromegaly. No submental, submandibular, pre- /postauricular, occipital or supraclavicular lymphadenopathy. CHEST: Normal chest expansion. No Telemetry. LUNGS: Absence of any rales, rhonchi or any wheezing. CARDIOVASCULAR: Regular. S1 and S2 normal. No appreciable rubs, murmurs or gallops. ABDOMEN: Soft, and nondistended. There is no rebound, voluntary guarding, or rigidity. Tender to touch : Deferred. No Boswell. EXTREMITIES: Non-edematous and not cyanotic. No clubbing. Good capillary refill. SKIN: No skin breakdown. ASSESSMENT: DKA POA - resolved Patient was diagnosed with DKA and treated with insulin drip. off insulin drip. he is non-compliant to insulin due to high cost and does not use any diabetic meds currently. glucose are still high, so insulin adjusted Uncontrolled diabetes mellitus type 2 with hypoglycemia POA Acute hypercapnic respiratory failure POA Acute tachycardia due to above POA Acute dehydration POA Acute kidney injury due to above POA Intractable nausea and vomiting POA Severe abdominal pain POA Medical noncompliance POA Leukocytosis WBC 11.9 POA Uncontrolled hypertension POA Lactic acidosis 5.7 Electrolyte imbalance hyponatremia 131 PLAN: increase lantus to 20 units daily start regular insulin 5 units tid before meals continue low dose ssi monitor glucose qx6 hourly patient will novolin 70/30 insulin 20 units am and 10 units om thanks for allowing me to particpate in patient care and will continue to follow up. Vital Signs 09/03/24 09/04/24 09/04/24 09/04/24 20:00 04:00 11:14 15:35 Temp 98.6 Pulse 74 Resp 15 B/P (MAP) 89/59 Pulse Ox 100 O2 Delivery Room Air O2 Flow Rate 0 FiO2 21 Hematology Labs: Test 09/04/24 04:42 09/03/24 13:36 Range/Units White Blood Count 7.3 # 4.8-10.8 K/uL Red Blood Count 3.62 L 4.50-6.20 MIL/uL Hemoglobin 11.3 L 14.0-18.0 g/dL Hematocrit 31.8 #L 42-54 % Mean Corpuscular Volume 87.8 79-99 fL Mean Corpuscular Hemoglobin 31.2 27.0-33.0 pg Mean Corpuscular Hemoglobin Concent 35.5 32.0-36.0 g/dL Red Cell Distribution Width 12.8 11.0-15.5 % Platelet Count 169 # 130-400 K/uL Mean Platelet Volume 10.2 7.5-10.5 fL Immature Granulocyte % (Auto) 0.3 0-1 % Neutrophils (%) (Auto) 72.9 40.0-77.0 % Lymphocytes (%) (Auto) 13.3 L 21.0-51.0 % Monocytes (%) (Auto) 12.5 3.0-13.0 % Eosinophils (%) (Auto) 0.7 0.0-8.0 % Basophils (%) (Auto) 0.3 0.0-5.0 % Neutrophils # (Auto) 5.3 1.8-7.7 K/uL Lymphocytes # (Auto) 1.0 1.0-4.8 K/uL Monocytes # (Auto) 0.9 0.1-1.0 K/uL Eosinophils # (Auto) 0.05 0.00-0.70 K/uL Basophils # (Auto) 0.02 0.00-0.20 K/uL Absolute Immature Granulocyte (auto 0.02 0-1 K/uL Nucleated Red Blood Cells 0.0 0.0-0.19 % White Cell Morphology Comment See comments Chemistry Labs: Test 09/04/24 14:45 09/04/24 06:48 09/04/24 04:42 09/03/24 14:55 Range/Units Sodium Level 138 136-145 mmol/L Potassium Level 3.4 L 3.5-5.1 mmol/L Chloride Level 107 101-111 mmol/L Carbon Dioxide Level 17 L 21-32 mmol/L Blood Urea Nitrogen 16 7-18 mg/dL Creatinine 0.7 0.5-1.3 mg/dL Glomerular Filtration Rate Calc 112 >90 mL/min Random Glucose 315 H 70-105 mg/dL Total Calcium 7.7 L 8.5-10.1 mg/dL Whole Blood Glucose 138 H 70-110 MG/DL Lactic Acid Level 1.5 0.8-2.5 mmol/L Magnesium Level 1.80 1.80-2.40 mg/dL Total Bilirubin 0.2 0.2-1.0 mg/dL Direct Bilirubin 0.1 0.0-0.3 mg/dL Aspartate Amino Transf (AST/SGOT) 23 10-37 U/L Alanine Aminotransferase (ALT/SGPT) 21 12-78 U/L Alkaline Phosphatase 76 50-136 U/L Total Creatine Kinase 74 21-232 U/L B-Type Natriuretic Peptide 75 0-100 pg/mL Total Protein 4.9 L 6.0-8.3 g/dL Albumin 2.4 L 3.5-5.0 g/dL Procalcitonin 2.31 H 0.05-0.5 ng/mL Bedside Glucose Comment Protocol Initiated Test 09/03/24 13:36 09/03/24 13:20 Range/Units Troponin I High Sensitivity < 4 L 4-75 ng/L Whole Blood Ketones Quantitative 7.5 H 0.0-0.6 mmol/L Current Medications Medications (Trade) Dose Ordered Sig/Moris Route Start Time Stop Time Status Last Admin Dose Admin Dextrose/Sodium Chloride 1,000 ml @ 0 mls/hr AD IV 09/03/24 14:30 10/03/24 14:29 Famotidine (Pepcid 20mg Vial) 20 mg DAILY IV 09/04/24 09:00 10/04/24 08:59 09/04/24 10:08 20 MG Heparin Sodium (Porcine) (HEParin 5,000 UNIT VIAL) 5,000 unit BID SQ 09/03/24 21:00 10/03/24 20:59 09/04/24 11:24 5,000 UNIT Insulin Glargine (LANtus 100 UNITS/ML 10 ML VIAL) 15 units BID@0730,2100 SQ 09/04/24 21:00 10/04/24 20:59 Insulin Human Regular (humuLIN R 100 UNIT/ML 3ML) INSULIN SLIDING SCAL... ACHS SQ 09/03/24 16:30 09/04/24 11:10 DC Insulin Human Regular (humuLIN R 100 UNIT/ML 3ML) INSULIN SLIDING SCAL... ACHS SQ 09/04/24 11:30 10/04/24 11:29 Insulin Human Regular 100 unit/ Sodium Chloride 101 ml @ 0 mls/hr PROTOCOL IV 09/03/24 14:30 09/04/24 08:25 DC 09/03/24 15:11 5.4 MLS/HR Lactated Ringer's (Lactated Ringers 1000ml) 500 ml BOLUS IV 09/03/24 21:00 09/04/24 06:26 DC Magnesium Hydroxide (Milk Of Magnesium 30ml) 30 ml DAILY PO 09/04/24 09:30 10/04/24 09:29 09/04/24 11:24 30 ML Magnesium Sulfate 50 ml @ 0 mls/hr PROTOCOL IV 09/03/24 14:30 10/03/24 14:29 Piperacillin Sod/ Tazobactam Sod 50 ml @ 12.5 mls/hr Q8H IV 09/03/24 21:00 09/04/24 09:29 DC 09/04/24 04:29 12.5 MLS/HR Potassium Chloride 20 meq/ Sodium Chloride 1,010 ml @ 0 mls/hr PROTOCOL IV 09/03/24 14:30 10/03/24 14:29 Potassium Chloride/Dextrose/ Sod Cl 1,000 ml @ 0 mls/hr AD IV 09/03/24 14:30 10/03/24 14:29 09/04/24 01:17 150 MLS/HR Sodium Chloride 1,000 ml @ 0 mls/hr Q0M STAT IV 09/03/24 14:31 09/03/24 14:38 DC 09/03/24 14:41 1,000 MLS/HR Sodium Chloride 1,000 ml @ 100 mls/hr Q10H IV 09/03/24 16:30 09/03/24 16:41 DC Sodium Chloride 1,000 ml @ 200 mls/hr PROTOCOL IV 09/03/24 14:30 10/03/24 14:29 09/04/24 10:09 200 MLS/HR Tamsulosin HCl (FloMAX) 0.4 mg DAILY PO 09/04/24 09:30 10/04/24 09:29 09/04/24 11:24 0.4 MG FREDRICK NARANJO MD September 04, 2024 16:57
--- NOTE | 2024-09-04 17:00 | NUR ---
PER APARNA, NURSE WAS CALLED AND WAS UNABLE TO PHYSICALLY BRING PATIENT DOWN, NO TRANSPORT
[2024-09-04] MEDS: INSULIN GLARgine 100 UNITS/ML 10 ML VIAL SQ SCH ×2 (17:27→17:29)
[2024-09-04 18:17] LABS: CREATININE 0.7 mg/dL (0.5-1.3); POTASSIUM 3.5 mmol/L (3.5-5.1)
[2024-09-04 20:02] LABS: CREATININE 0.7 mg/dL (0.5-1.3)
[2024-09-04 20:12] LABS: POTASSIUM 2.9 mmol/L (3.5-5.1)
[2024-09-05] VITALS (9 sets, daily range): BP systolic 82–106; BP diastolic 40–71; PULSE 60–76; RESP 16–18; TEMP 97.5–98.2; O2SAT 100
[2024-09-05 04:43] LABS: BASOPHILS # (AUTO) 0.03 K/uL (0.00-0.20); BASOPHILS % (AUTO) 0.5 % (0.0-5.0); EOSINOPHILS # (AUTO) 0.13 K/uL (0.00-0.70); EOSINOPHILS % (AUTO) 2.1 % (0.0-8.0); HEMATOCRIT 31.8 % (42-54); IMMATURE GRANULOCYTE ABSOLUTE 0.02 K/uL (0-1); LYMPHOCYTES # (AUTO) 1.2 K/uL (1.0-4.8); LYMPHOCYTES % (AUTO) 19.4 % (21.0-51.0); MEAN CORPUSCULAR HEMOGLOBIN 30.7 pg (27.0-33.0); MEAN CORPUSCULAR HGB CONC 34.9 g/dL (32.0-36.0); MEAN CORPUSCULAR VOLUME 88.1 fL (79-99); MONOCYTES # (AUTO) 0.5 K/uL (0.1-1.0); MONOCYTES % (AUTO) 8.2 % (3.0-13.0); NEUTROPHILS # (AUTO) 4.3 K/uL (1.8-7.7); NEUTROPHILS % (AUTO) 69.5 % (40.0-77.0); PLATELET COUNT (AUTO) 148 K/uL (130-400); RED BLOOD CELL COUNT(AUTO) 3.61 MIL/uL (4.50-6.20); RED CELL DISTRIBUTION WIDTH 13.2 % (11.0-15.5); WHITE BLOOD COUNT (AUTO) 6.2 K/uL (4.8-10.8)
[2024-09-05 05:09] LABS: ALBUMIN 2.3 g/dL (3.5-5.0); BILIRUBIN,TOTAL 0.4 mg/dL (0.2-1.0); CREATININE 0.4 mg/dL (0.5-1.3); POTASSIUM 3.5 mmol/L (3.5-5.1); TOTAL PROTEIN, SERUM 4.7 g/dL (6.0-8.3)
--- NOTE | 2024-09-05 06:26 | NUR ---
per RN Jorge will talk to charge coordinator and see if they can bring them down and was unaware of pending CT
[2024-09-05] MEDS: INSULIN humuLIN R 100 UNIT/ML 3ML SQ SCH (07:46)
--- NOTE | 2024-09-05 10:14 | HMCIMG ---
CT NONCONTRAST CHEST Comparison Study: September 03, 2024 History: lesions? neoplastic disease Technique: Helical CT of the chest without IV contrast at 5 mm collimation. Coronal and sagittal reformations also done. CT Dose Index (CTDI): 2.38 mGy Dose Length Product (DLP): 94.8 total mGy-cm Findings: The airway is intact. The trachea and major bronchi are unremarkable. The irregular lesion of the left lower lobe is again seen, unchanged since the examination of September 03. Unfortunately, this follow-up period is too short for me to define whether or not this is a neoplastic mass or just an evolving infiltrate. No significant pulmonary parenchymal abnormalities are noted. No pulmonary infiltrates or mass lesions are seen. No pleural effusions are identified. There is no pneumothorax. There is no evidence of pneumomediastinum. The nonenhanced exam of the ben and mediastinum is unremarkable. No evidence of hilar enlargement is seen. The aorta shows no aneurysmal dilatation or significant atheromatous calcification. No significant brachiocephalic vascular abnormalities are seen. The heart is unremarkable. It is not enlarged. No significant coronary arterial calcifications are seen. There is no pericardial effusion. The rib cage appears unremarkable. The soft tissues of the chest wall are unremarkable. The dorsal spine shows no significant abnormalities. IMPRESSION: The irregular lesion of the left lower lobe is again seen, unchanged since the examination of September 03. Unfortunately, this follow-up period is too short for me to define whether or not this is a neoplastic mass or just an evolving infiltrate. A repeat examination in 3 months after completion of medical therapy is therefore recommended. This study was performed using dose reduction techniques to include automated exposure control and/or adjustment of the mA and/or kV according to patient size.
--- NOTE | 2024-09-05 13:22 | PN ---
[facility] PROGRESS NOTE Date Patient Seen: September 05, 2024 Time of Visit: 13:22 Supervising Physician: Dr. Kosta Hamilton Consulting Physician: Hospitalist Outpatient Specialists: [ ] Inpatient Consults: [BIS] PROBLEM LIST: Diabetic ketoacidosis, resolved High anion gap metabolic acidosis, resolved DM type 2, with hyperglycemia, poorly controlled, POA Acute urinary retention Leukocytosis, POA Lactic acidosis, POA, resolved Constipation Intractable nausea and vomiting, POA, resolved Hypocalcemia, POA Electrolyte abnormality, POA Recommendations Seek PET scan as outpatient Follow with [facility] in three months to evaluate for interval changes on left side solitary lung nodule and scheduling of possible bronchoscopy INTERVAL HISTORY: Patient evaluated at bedside today, currently on room air, denies any discomfort, no chest pain, no difficulty breathing. Patient also denies any nausea or vomiting, tolerating his diet well. Recommendations at this time of for the patient to seek outpatient PET scan as well as follow up with [facility] in three months to evaluate for any interval changes with a solitary lung nodule located in the left lower lobe and to schedule possible bronchoscopy with biopsy if necessary.. At this time pulmonary Services will sign off the case, should her services be needed again please re-consult. Thank you for allowing us to participate in the care of this patient. REVIEW OF SYSTEMS: 12 point ROS reviewed with patient. Pertinent positives mentioned above. Otherwise negative. PHYSICAL EXAM: GENERAL: alert, weak, awake oriented x 3 HEENT: EOMI, Sclera non icteric, moist mucosa NECK: Supple, no JVD, trachea midline LUNGS: Clear breath sounds bilaterally. No wheezes HEART: Regular rate and rhythm. Normal S1 and S2, without murmurs ABD: Abdomen soft, nontender. Bowel sounds present EXT: No clubbing cyanosis or edema NEURO: Alert and oriented to person, follows commands Vital Signs (last 8hr) Date Time Temp Pulse Resp B/P (MAP) Pulse Ox O2 Delivery O2 Flow Rate FiO2 09/05/24 11:32 76 102/54 09/05/24 11:31 68 85/45 09/05/24 11:28 64 82/44 09/05/24 11:17 98.2 60 16 91/40 100 Room Air 0.0 09/05/24 08:00 100 Room Air* 0 21 09/05/24 07:57 97.5 61 18 99/65 100 Room Air 0.0 LABS: Hematology Labs: Test 09/05/24 04:08 09/03/24 13:36 Range/Units White Blood Count 6.2 4.8-10.8 K/uL Red Blood Count 3.61 L 4.50-6.20 MIL/uL Hemoglobin 11.1 L 14.0-18.0 g/dL Hematocrit 31.8 L 42-54 % Mean Corpuscular Volume 88.1 79-99 fL Mean Corpuscular Hemoglobin 30.7 27.0-33.0 pg Mean Corpuscular Hemoglobin Concent 34.9 32.0-36.0 g/dL Red Cell Distribution Width 13.2 11.0-15.5 % Platelet Count 148 130-400 K/uL Mean Platelet Volume 10.5 7.5-10.5 fL Immature Granulocyte % (Auto) 0.3 0-1 % Neutrophils (%) (Auto) 69.5 40.0-77.0 % Lymphocytes (%) (Auto) 19.4 L 21.0-51.0 % Monocytes (%) (Auto) 8.2 3.0-13.0 % Eosinophils (%) (Auto) 2.1 0.0-8.0 % Basophils (%) (Auto) 0.5 0.0-5.0 % Neutrophils # (Auto) 4.3 1.8-7.7 K/uL Lymphocytes # (Auto) 1.2 1.0-4.8 K/uL Monocytes # (Auto) 0.5 0.1-1.0 K/uL Eosinophils # (Auto) 0.13 0.00-0.70 K/uL Basophils # (Auto) 0.03 0.00-0.20 K/uL Absolute Immature Granulocyte (auto 0.02 0-1 K/uL Nucleated Red Blood Cells 0.0 0.0-0.19 % White Cell Morphology Comment See comments Chemistry Labs: Test 09/05/24 11:47 09/05/24 04:08 09/04/24 04:42 09/03/24 14:55 Range/Units Whole Blood Glucose 127 H 70-110 MG/DL Sodium Level 140 136-145 mmol/L Potassium Level 3.5 3.5-5.1 mmol/L Chloride Level 109 101-111 mmol/L Carbon Dioxide Level 22 21-32 mmol/L Blood Urea Nitrogen 16 7-18 mg/dL Creatinine 0.4 L 0.5-1.3 mg/dL Glomerular Filtration Rate Calc 132 >90 mL/min Random Glucose 162 H 70-105 mg/dL Total Calcium 7.9 L 8.5-10.1 mg/dL Total Bilirubin 0.4 # 0.2-1.0 mg/dL Aspartate Amino Transf (AST/SGOT) 17 10-37 U/L Alanine Aminotransferase (ALT/SGPT) 15 # 12-78 U/L Alkaline Phosphatase 71 50-136 U/L Total Protein 4.7 L 6.0-8.3 g/dL Albumin 2.3 L 3.5-5.0 g/dL Lactic Acid Level 1.5 0.8-2.5 mmol/L Magnesium Level 1.80 1.80-2.40 mg/dL Direct Bilirubin 0.1 0.0-0.3 mg/dL Total Creatine Kinase 74 21-232 U/L B-Type Natriuretic Peptide 75 0-100 pg/mL Procalcitonin 2.31 H 0.05-0.5 ng/mL Bedside Glucose Comment Protocol Initiated Test 09/03/24 13:36 Range/Units Troponin I High Sensitivity < 4 L 4-75 ng/L DIAGNOSTICS / RADIOLOGY RESULTS: [ ] PLAN NEURO: Minimize central acting medications as possible. Maintain fall precautions, adequate lighting during the day PULMONARY: Supplemental 02 as needed. Maintain aspiration precautions at all times CARDIOVASCULAR: Follow hemodynamics. Vital signs per facility protocol GI & NUTRITION: Continue with nutritional support. Continue stool softeners and laxatives as needed. KIDNEYS & ELECTROLYTES: Strict monitoring of intake, output and overall fluid balance. Avoid nephrotoxic medications to the extent possible. Medications to be dosed according to renal function. Monitor electrolytes and replace as needed ENDOCRINE: Maintain blood glucose between 100-180 at all times. Hypoglycemia protocol in place INFECTIOUS DISEASE: Trend temperature, WBC and procalcitonin level Follow cultures, deescalate antibiotics as soon as possible. Panculture if new onset fever ONCOLOGY/HEMATOLOGY/COAGULATION: Monitor for s/s of bleeding Monitor hemoglobin, coagulation studies as needed SKIN: Pressure ulcer prevention per facility protocol Specialty mattress ORTHO/REHAB: Continue PT/OT Prophylaxis: Continue GI and DVT prophylaxis Code Status: Full Resuscitation Disposition: TBD Other: Total patient care time exceeds 35 minutes excluding all procedures. CARLITOS HAMILTON September 05, 2024 13:22
--- NOTE | 2024-09-05 13:43 | DS ---
Discharge Summary Hospital Course Summary: Patient is 49 years old male with a past medical history of diabetes, noncompliance, who came to emergency department with a complaint of nausea, vomiting and abdominal pain. Patient stated that he has been having abdominal pain for the past few days. Nausea and vomiting started a day after abdominal pain. The patient decided to come to ER due to severe abdominal pain, that no pain medications were able to release the pain. Most recent vital signs temperature 97.9� pulse 110 respiration 26 blood pressure 126/78. Patient is on room air satting 99%. WBC 11.9 hemoglobin 14 hematocrit 44.8 platelets 246. UA negative for leukocytosis or nitrates. Sodium 131 potassium 4.7 CO2 seven BUN 27 creatinine 1.6 GFR 52 blood glucose 466. Random glucose 538 lactic acid 5.7 WBC ketones 7.5 total calcium 7.9 troponin negative x1 CK 88. Patient admitted under hospitalist care and we will send patient to ICU for DKA. Patient was started on insulin drip in the meantime. Chest x-ray clear lungs. CT chest showing irregular lesion left lower lobe again seen, unchanged since examination September 03, repeat examination three months recommended. Finding discussed with the patient, alert oriented x3, agreed and understood the information provided. Today the patient is alert oriented x3, hemodynamically stable, afebrile, saturating normal on room air, we will like to be discharged home today Directory Assistance Operator(s): Critical care Assessment/Plan: Time doses [ Acute DKA POA Acute hypercapnic respiratory failure POA Acute tachycardia due to above POA Acute dehydration POA Acute kidney injury due to above POA Intractable nausea and vomiting POA Severe abdominal pain POA Electrolyte imbalance hypokalemia 2.8 POA Left lower lobe pneumonia per CT abdomen/pelvis ruled out Neoplastic disease per CT abdomen/pelvis POA Medical noncompliance POA Leukocytosis WBC 11.9 POA Uncontrolled diabetes mellitus type 2 with hypoglycemia POA Uncontrolled hypertension POA Lactic acidosis 5.7 Electrolyte imbalance hyponatremia 131 Discharge Instructions: The patient would like to be discharged home today, he was advised to find a PCP and electrical installation inspector as an outpatient and to return to the hospital if condition changes. Findings on CT chest discussed to once again in detail, he was advised to follow up in three months to rule out the possibility of the dropping malignancy, patient agreed with plan and understood the information provided. A written prescription for insulin 70 30 per electrical installation inspector recommendation was given to the patient, as well as oral antibiotic with doxycycline 100 mg p.o. b.i.d. for 10 days and cefdinir 300 mg p.o. b.i.d. for 10 days. Home Medications: Reported Medications Metformin HCl (Metformin HCl) 500 Mg Tablet, 1 TAB PO BID for 30 Days, #60 TAB 0 Refills 09/03/24 Time spent arranging discharge: 31-60 minutes WADE MAST MD September 05, 2024 13:43
--- NOTE | 2024-09-05 15:09 | NUR ---
Patient alert and oriented x4, being discharged home via transportation provided by hospital. Patient given 2 form prescriptions - 1 for antibiotics and 1 for insulin, educated on all the medications, including side effects. Educated to take medications as prescribed, educated on hypo and hyperglycemia S&S and interventions. Educated to follow up with PCP and with Dr. Rowland as per scheduled lorna. IVsx3 removed without complications. All questions answered, patient verbalized complete understanding. Patient gathered all belongings, including his wallet, and took with him at discharge. Patient taken to ER with security to wait for lift.
--- NOTE | 2024-09-08 18:09 | NUR ---
Transitional Phone Call Attempted to call twice, "not accepting calls at this time."
== END 2024-09-05 15:04 | disposition home or self-care (01) | DRG 637 ==
LOC: EDH 13:18 → EDHIP 13:19 → 2CH 18:04
PROVIDERS: ADMIT Internal Medicine; ATTEND Internal Medicine
DX: E11.10 Type 2 diabetes mellitus with ketoacidosis without coma (principal); J18.9 Pneumonia, unspecified organism; J96.02 Acute respiratory failure with hypercapnia; N17.9 Acute kidney failure, unspecified; E87.1 Hypo-osmolality and hyponatremia; E86.0 Dehydration; E11.649 Type 2 diabetes mellitus with hypoglycemia without coma; E83.51 Hypocalcemia; K59.00 Constipation, unspecified; R00.0 Tachycardia, unspecified; Z20.822 Contact with and (suspected) exposure to COVID-19; I10 Essential (primary) hypertension; E87.6 Hypokalemia; Z79.4 Long term (current) use of insulin; Z91.148 Patient's other noncompliance with medication regimen for other reason
CPT/HCPCS: 36415; 36600; 71045; 71250; 74176; 80048; 80053; 80076; 81001; 82010; 82435; 82550; 82803; 82947; 82948; 83036; 83605; 83735; 83880; 84132; 84145; 84295; 84484; 85018; 85025; 87040; 87086; 87426; 93005; 99285; G0378; J1644; J1815; J2405; J2543; J3480; J3490; J7030